=== PATIENT | male | born 1950 | race African-American/Black ===

== ENCOUNTER 2024-01-29 23:15 | Inpatient (IN) | payer OTHER, SELFPAY ==
[2024-01-29] MEDS ORDERED: ONDANSETRON 4 MG/2 ML VIAL ONE (23:38)
[2024-01-29] MEDS ORDERED: VANCOMYCIN 1 GM/VIAL ONE (23:38)
[2024-01-29] MEDS ORDERED: ACETAMINOPHEN 500 MG TAB ONE (23:38)
[2024-01-29] MEDS ORDERED: IBUPROFEN 400 MG TAB ONE (23:38)
[2024-01-29] MEDS ORDERED: CEFAZOLIN SODIUM 1 GM/VIAL ONE (23:38)
[2024-01-29] MEDS ORDERED: NA CHLORIDE 0.9% 2,000 ML ONE (23:39)
[2024-01-29] MEDS ORDERED: NA CHLORIDE 0.9% 100 ML ONE (23:39)
[2024-01-29] MEDS ORDERED: NA CHLORIDE 0.9% 500 ML ONE (23:39)
[2024-01-29 23:51] LABS: PT Prothrombin Time 16.2 SECONDS (9.4-12.5); PTT, Activated Partial Thromb 31.2 SECONDS (24.3-36.9); Protime INR 1.46
[2024-01-29 23:54] LABS: Specific Gravity 1.015 (1.005-1.030); Sqamous Epithelial <5 /HPF (None Seen); Urine Bacteria <20 /HPF (<20); Urine Bilirubin NEGATIVE (Negative); Urine Blood 1+ (Negative); Urine Clarity Extremely Turbid (Clear); Urine Color Light-Orange (Yellow); Urine Culture Reflex Order NOT NEEDED; Urine Glucose TRACE (Negative); Urine Ketones NEGATIVE (Negative); Urine Microscopic Reflex YN ORDER UMIC; Urine Mucus 1+ /HPF (None Seen); Urine Nitrite NEGATIVE (Negative); Urine Protein 2+ (Negative); Urine RBC <5 /HPF (None Seen); Urine Urobilinogen Normal (Normal); Urine pH 5.5 (5.0-7.0)
[2024-01-29 23:54] LABS: Absolute Lymphocytes (CBC) 0.6 K/uL (0.7-4.9); Absolute Monocytes 0.9 K/uL (0.1-1.3); Absolute Neutrophil 18.3 K/uL (1.8-8.0); Basophils % 0.2 % (0-1.3); Eosinophils % 0.1 % (0-4.4); Hematocrit 38.9 % (39.6-49.0); Hemoglobin 12.7 g/dL (13.6-17.9); Lymphocytes % 3.1 % (15.3-44.8); MCH 27.8 pg (27.0-35.0); MCHC 32.6 g/dL (32.0-36.0); MCV 85.2 fL (80-100); MPV 8.6 fL (7.6-11.3); Monocytes % 4.4 % (3.3-12.3); Neutrophils % 92.2 % (41.7-73.7); Nucleated Red Blood Cells % 0.1 % (0-0); Platelets 241 thou/uL (152-406); RBC Red Blood Cell Count 4.56 M/uL (4.33-5.43); Red Cell Distribution Width 14.9 % (12.1-15.2)
[2024-01-30 00:01] LABS: Arterial Blood Carboxyhemoglob 1.2 % (0-1.5); Blood Gas Oxyhemoglobin 90.9 % (94-97); Blood Gas THB 12.7 g/dl (12-18); Blood O2 Saturation 94.2 % (92-98.5)
[2024-01-30 00:02] LABS: Albumin 2.7 g/dL (3.4-5.0); Albumin/Globulin Ratio 0.5 (1.1-1.8); Anion Gap 14.3 mEq/L (5.0-15.0); Bilirubin Total 0.9 mg/dL (0.2-1.0); Globulin 5.5 g/dL (2.3-3.5); Potassium 3.3 mEq/L (3.5-5.1); Protein, Total 8.2 g/dL (6.4-8.2)
[2024-01-30 00:04] LABS: Troponin High Sensitivity 1189.6 pg/mL (<58.9)
[2024-01-30 00:16] LABS: Blood Morphology Comment NOT SEEN (NOT SEEN); Platelet Estimate ADEQ; White Blood Cell Scan OK (OK)
[2024-01-30 02:14] LABS: SARS-CoV-2 Antigen CONTROL BLUE LINE VIS/BG OK; SARS-CoV-2 Antigen Rapid Res Negative (Negative)
--- NOTE | 2024-01-30 03:02 | ER ---
Nurse's Notes [facility] [place] Name: Cruz Slater Age: 73 yrs Sex: Male : 1950 Arrival Date: 01/29/2024 Time: 23:15 Bed 18 Private MD: Diagnosis: Severe sepsis without septic shock;Acute pyelonephritis, acute troponin elevation, severe sepsis, acute febrile illness Presentation: 01/28 23:24 Chief complaint: Family states patient has had slurred speech and urinating on himself cm10 onset "this evening." Family states that patient has recently been in and out of the hospital. Coronavirus screen: Client denies travel out of the [place] in the last 14 days. Ebola Screen: Patient denies travel to an Ebola-affected area in the 21 days before illness onset. No symptoms or risks identified at this time. Initial Sepsis Screen: Does the patient meet any 2 criteria? Temp <36.0*C (96.8*F)) or > 38.3*C (100.9*F). HR > 90 bpm. Does the patient have a suspected source of infection? No. Patient's initial sepsis screen is negative. Risk Assessment: Do you want to hurt yourself or someone else? Patient reports no desire to harm self or others. Onset of symptoms is unknown. 23:24 Method Of Arrival: Wheelchair cm10 23:24 Acuity: KWAME 2 cm10 Historical: - Allergies: 23:26 No Known Allergies; cm10 - PMHx: 23:26 Diabetes mellitus; cm10 23:41 Hypertensive disorder; Hypercholesterolemia; cm10 - Immunization history:: Adult Immunizations unknown. - Infectious Disease History:: Denies. - Social history:: Smoking status: unknown. - Family history:: not pertinent. Screenin:20 [facility] ED Fall Risk Assessment (Adult) History of falling in the last 3 months, ha1 including since admission Yes- single mechanical fall (1 pt) Confusion or Disorientation Yes (5 pts) Intoxicated or Sedated No (0 pts) Impaired Gait Yes (1 pt) Mobility Assist Device Used Yes (1 pt) Altered Elimination Score/Fall Risk Level 3 or more points = High Risk Oriented to surroundings, Maintained a safe environment, Educated pt \\T\\ family on fall prevention, incl call for assistance when getting out of bed, Hourly rounding (assess needs \\T\\ fall precautionary measures) done, Implemented a Fall Risk Plan of Care. 23:46 Abuse screen: Denies threats or abuse. Denies injuries from another. jp4 01/29 04:22 Nutritional screening: No deficits noted. Tuberculosis screening: No symptoms or risk ha1 factors identified. Assessment: 01/28 23:20 General: Appears uncomfortable, ill, unkempt, Behavior is cooperative. Pain: Denies ha1 pain. Neuro: Level of Consciousness is awake, Oriented to person, place. Neuro: Reports dizziness, weakness GENERALIZED. Cardiovascular: Capillary refill < 3 seconds Patient's skin is warm and dry. Respiratory: Airway is patent Respiratory effort is even, unlabored, Respiratory pattern is regular, symmetrical. GI: Abdomen is round non-distended. : No signs and/or symptoms were reported regarding the genitourinary system. Derm: Skin is fragile, Skin is dry, Skin is normal. Musculoskeletal: Circulation, motion, and sensation intact. 01/29 00:15 Reassessment: Patient and/or family updated on plan of care and expected duration. Pain ha1 level reassessed. Patient is alert, oriented x 3, equal unlabored respirations, skin warm/dry/pink. 01:15 Reassessment: Patient and/or family updated on plan of care and expected duration. Pain ha1 level reassessed. Patient is alert, oriented x 3, equal unlabored respirations, skin warm/dry/pink. Patient denies pain at this time. Patient states feeling better. Patient states symptoms have improved. 02:00 Reassessment: Patient and/or family updated on plan of care and expected duration. Pain ha1 level reassessed. Patient is alert, oriented x 3, equal unlabored respirations, skin warm/dry/pink. 03:00 Reassessment: Patient and/or family updated on plan of care and expected duration. Pain ha1 level reassessed. Patient is alert, oriented x 3, equal unlabored respirations, skin warm/dry/pink. 03:40 Reassessment: notified Dr. Olivia of low BP . transportation to room pending due to ha1 low BP. 04:00 Reassessment: Patient and/or family updated on plan of care and expected duration. Pain ha1 level reassessed. 05:00 Reassessment: Patient and/or family updated on plan of care and expected duration. Pain ha1 level reassessed. Patient is alert, oriented x 3, equal unlabored respirations, skin warm/dry/pink. Patient states feeling better. Patient states symptoms have improved. Vital Signs: 01/28 23:24 BP 120 / 71; Pulse 133; Resp 22; Temp 103.1(O); Pulse Ox 96% on R/A; Weight 95.71 kg cm10 (M); 01/29 00:00 BP 103 / 60; Pulse 120; Resp 21 S; Pulse Ox 100% on R/A; ha1 01:00 BP 105 / 64; Pulse 121; Resp 20 S; Temp 99.2(O); Pulse Ox 98% on R/A; ha1 02:00 BP 105 / 58; Pulse 102; Resp 17 S; Pulse Ox 98% on R/A; ha1 02:30 BP 91 / 61; Pulse 98; Resp 17 S; Pulse Ox 99% on R/A; ha1 03:00 BP 95 / 60; Pulse 97; Resp 17 S; Pulse Ox 100% on R/A; ha1 03:30 BP 101 / 88; Pulse 94; Resp 18 S; Pulse Ox 98% on R/A; ha1 04:30 BP 92 / 57; Pulse 94; Resp 17 S; Pulse Ox 97% on R/A; ha1 05:00 BP 99 / 65; Pulse 89; Resp 17 S; Pulse Ox 95% on R/A; ha1 05:22 BP 100 / 65; Pulse 92; Resp 17 S; Pulse Ox 96% on R/A; ha1 Jamie Coma Score: 02:53 Eye Response: spontaneous(4). Motor Response: obeys commands(6). Verbal Response: sp4 oriented(5). Total: 15. NIH Stroke Scale Scores: 02:53 NIHSS Score: 1 sp4 ED Course: 01/28 23:20 Patient arrived in ED. sb4 23:20 Kwadwo Olivia MD is Attending Physician. sp4 23:20 Patient has correct armband on for positive identification. Placed in gown. Bed in low ha1 position. Call light in reach. Side rails up X2. Adult w/ patient. 23:26 Triage completed. cm10 23:26 Arm band placed on Patient placed in an exam room, on traffic monitor specialist, on pulse cm10 oximetry. 23:26 Initial lab(s) drawn, by me, sent to lab. Inserted saline lock: 18 gauge in left cm10 forearm, using aseptic technique. Blood collected. Flushed with 10 mL NS. Inserted saline lock: 20 gauge in right antecubital area, using aseptic technique. Blood collected. Flushed with 10 mL NS. 23:44 Urine collected: straight cath specimen, yury colored, Amount Returned: 200mL. jp4 23:47 EKG done, by ED staff, reviewed by Kwadwo Olivia MD. oe 23:53 Chest Single View XRAY In Process Unspecified. EDMS 01/29 00:12 Amelia Florian, RN is Primary Nurse. ha1 00:41 CT Head Brain wo Cont In Process Unspecified. EDMS 00:41 CT Chest, Abdomen, Pelvis - W/Contrast In Process Unspecified. EDMS 03:01 Jose John is Hospitalizing Provider. sp4 03:13 EKG done, by ED staff, reviewed by Kwadwo Olivia MD. oe 04:00 Provided Education on: need for admit . ha1 05:35 No provider procedures requiring assistance completed. Patient admitted, IV remains in ha1 place. Administered Medications: 01/28 23:41 Drug: NS 0.9% IV 1000 ml IV at 1 bolus Per protocol; 1000 mL bolus Route: IV; Rate: 1 ha1 bolus; Site: left forearm; 01/29 01:43 Follow up: Response: No adverse reaction; IV Status: Completed infusion; IV Intake: ha1 1000ml 01/28 23:42 Drug: NS 0.9% IV 1000 ml IV at 1 bolus Per protocol; 1000 mL bolus Route: IV; Rate: 1 ha1 bolus; Site: left forearm; 01/29 01:50 Follow up: Response: No adverse reaction; IV Status: Completed infusion; IV Intake: ha1 1000ml 01/28 23:42 Drug: NS 0.9% IV 1000 ml IV at 125 ml/hr continuous Route: IV; Rate: 125 ml/hr; Site: ha1 left forearm; 01/29 05:41 Follow up: Response: No adverse reaction; IV Status: Infusion continued; IV Intake: ha1 700ml 01/28 23:45 Drug: Acetaminophen PO 1000 mg PO once Route: PO; ha1 01/29 01:00 Follow up: Response: No adverse reaction; Temperature is decreased 01/28 23:45 Drug: Ibuprofen PO 800 mg PO once Route: PO; 01/29 01:00 Follow up: Response: No adverse reaction; Temperature is decreased 01/28 23:50 Drug: Ondansetron IVP 4 mg IVP once; over 2 minutes Route: IVP; Site: left forearm; ha01/29 00:10 Follow up: Response: No adverse reaction ha1 00:00 Drug: Cefepime IVPB 1 grams IVPB at 200 ml/hr once over 30 mins; (mix in NS 100 mL) ha1 Route: IVPB; Rate: 200 ml/hr; Infused Over: 30 mins; Site: left forearm; 00:30 Follow up: Response: No adverse reaction; IV Status: Completed infusion; IV Intake: ha1 100ml 01:00 Drug: vancoMYCIN IVPB 2 grams IVPB at calculated rate once Route: IVPB; Rate: ha1 calculated rate; Site: left forearm; 03:00 Follow up: Response: No adverse reaction; IV Status: Completed infusion; IV Intake: ha1 500ml 04:20 Drug: Enoxaparin Sub-Q 100 mg Sub-Q once Route: Sub-Q; Site: abdomen; ha1 04:50 Follow up: Response: No adverse reaction ha1 04:20 Drug: Aspirin PO Chewable Tablet 324 mg PO once; 81 mg tablets x 4 Route: PO; ha1 04:50 Follow up: Response: No adverse reaction ha1 04:45 Drug: Albumin IVPB 25 grams 100 ml IVPB once; (Note: Albumin 25% concentration) Volume: ha1 100 ml; Route: IVPB; Site: left forearm; 05:34 Follow up: Response: No adverse reaction; IV Status: Completed infusion; IV Intake: ha1 100ml 04:45 Drug: NS 0.9% IV 500 ml IV at bolus once Route: IV; Rate: bolus; Site: right ha1 antecubital; 05:34 Follow up: Response: No adverse reaction; IV Status: Infusion continued upon admission; ha1 IV Intake: 300ml Medication: 01:39 VIS not applicable for this client. ha1 Intake: 00:30 IV: 100ml; Total: 100ml. ha1 01:43 IV: 1000ml; Total: 1100ml. ha1 01:50 IV: 1000ml; Total: 2100ml. ha1 03:00 IV: 500ml; Total: 2600ml. ha1 05:34 IV: 300ml; Total: 2900ml. ha1 05:34 IV: 100ml; Total: 3000ml. ha1 05:41 IV: 700ml; Total: 3700ml. ha1 Outcome: 03:02 Decision to Hospitalize by Provider. sp4 04:21 Condition: stable ha1 04:21 Instructed on the need for admit, Demonstrated understanding of instructions, 05:35 Admitted to Med/surg accompanied by tech, via stretcher, room 201, with chart, ha1 05:42 Patient left the ED. ha1 NIH Stroke Scale - NIH Stroke Score Date: 01/30/2024 Time: 02:53 Total Score = 1 10. Dysarthria (speech clarity - read or repeat words) - 0(Normal) 11. Extinction and Inattention (visual/tactile/auditory/spatial/personal) - 1(Present) 1a. Level of Consciousness (LOC) - 0(Alert) 1b. Level of Consciousness (LOC) (Month \\T\\ Age) - 0(Both) 1c. LOC Commands (Open \\T\\ Closes Eyes/Coding Validator) - 0(Both) 2. Best Gaze (Lateral Gaze Paresis) - 0(Normal) 3. Visual Field Loss - 0(No visual loss) 4. Facial Palsy - 0(Normal) 5a. Left Arm: Motor (10-second hold) - 0(No drift) 5b. Right Arm: Motor (10-second hold) - 0(No drift) 6a. Left Leg: Motor (5-second hold - always test supine) - 0(No drift) 6b. Right Leg: Motor (5-second hold - always test supine) - 0(No drift) 7. Limb Ataxia (finger/nose \\T\\ heel/sierra - test with eyes open) - 0(Absent) 8. Sensory Loss (pinprick arms/legs/face) - 0(Normal) 9. Best Language: Aphasia (description/naming/reading) - 0(No aphasia) Initials: sp4 Signatures: Dispatcher [employer] EDMS Chuck Gutierrez Heidy, RN RN ha1 Brown, Merle, PA-C Kwadwo Charles MD MD sp4 Marianna Ordoñez RN RN cm10 Ihsan Shin RN RN jp4 Corrections: (The following items were deleted from the chart) 05:35 05:35 Response: No adverse reaction ha1 ha1 05:37 05:10 Reassessment: Patient and/or family updated on plan of care and expected ha1 duration. Pain level reassessed. Patient is alert, oriented x 3, equal unlabored respirations, skin warm/dry/pink. Patient states feeling better. Patient states symptoms have improved. ha1
--- NOTE | 2024-01-30 03:03 | EDPHYS ---
Physician Documentation [facility] Name: Cruz Slater Age: 73 yrs Sex: Male : 1950 Arrival Date: 01/29/2024 Time: 23:15 Bed 18 Private MD: ED Physician Kwadwo Olivia HPI: 01/29 02:39 This 73 yrs old Black Male presents to ER via Wheelchair with complaints of General sp4 Weakness. 02:53 73-year-old male with history of diabetes, hypertension, insulin-dependent diabetes, sp4 hyperlipidemia presents with acute onset of high fever generalized weakness and urinary incontinence. Patient reports that he was seen at [facility] on 01/24/2024 and again on Sunday01/26/2024, for complaints of generalized weakness and low potassium. Patient was discharged from [facility] without any specific diagnosis. But was advised to supplement potassium. At home this evening patient developed sudden onset of generalized weakness slurring of the speech high fever and urinary incontinence. On arrival patient has high fever 103 and has generalized weakness but no signs of lateralizing neurologic deficit. Patient's medications at home include metformin twice a day, amlodipine 5 mg p.o. daily, Januvia 100 mg daily, Levemir 10 units daily, ibuprofen as needed and Crestor daily. . Historical: - Allergies: 01/28 23:26 No Known Allergies; cm10 - PMHx: 23:26 Diabetes mellitus; cm10 23:41 Hypertensive disorder; Hypercholesterolemia; cm10 - Immunization history:: Adult Immunizations unknown. - Infectious Disease History:: Denies. - Social history:: Smoking status: unknown. - Family history:: not pertinent. ROS: 01/29 02:53 Constitutional: Positive for fever, positive for generalized weakness, positive for sp4 urinary incontinence. All other systems are negative, Exam: 02:53 Constitutional: Ill-appearing, generalized weakness febrile, ill-appearing and toxic sp4 appearing. Nonhypertensive. Tachycardic Head/Face: Normocephalic, atraumatic. Eyes: Pupils equal round and reactive to light, extra-ocular motions intact. Lids and lashes normal. Conjunctiva and sclera are not injected. Cornea within normal limits. Periorbital areas with no swelling, redness, or edema. ENT: Nares patent. No nasal discharge, no septal abnormalities noted. Tympanic membranes are normal and external auditory canals are clear. Oropharynx with no redness, swelling, or masses, exudates, or evidence of obstruction, uvula midline. Mucous membranes moist. Neck: Trachea midline, no thyromegaly or masses palpated, and no cervical lymphadenopathy. Supple, full range of motion without nuchal rigidity, or vertebral point tenderness. Chest/axilla: Normal chest wall appearance and motion. Nontender with no deformity. No lesions are appreciated. Cardiovascular: Regular tachycardia, no gallops, murmurs, or rubs. Normal PMI, no JVD. No pulse deficits. Respiratory: Lungs have equal breath sounds bilaterally, clear to auscultation and percussion. No rales, rhonchi or wheezes noted. No increased work of breathing, no retractions or nasal flaring. Abdomen/GI: Soft, with normal bowel sounds. No distension or tympany. No guarding or rebound. No evidence of tenderness throughout. Back: No spinal tenderness. No costovertebral tenderness. Skin: Warm, dry with normal turgor. Normal color with no rashes, no lesions, and no evidence of cellulitis. MS/ Extremity: Pulses equal, no cyanosis. Neurovascular intact. Full, normal range of motion. Neuro: Awake and alert, GCS 15, oriented to person, Cranial nerves II-XII grossly intact. Motor strength 5/5 in all extremities. Sensory grossly intact. Generalized weakness , no lateralizing deficits 02:53 ECG was reviewed by the Attending Physician. EKG at 2 when she 329 atrial fibrillation sp4 rate 125, no ST elevation or depression. 04:54 ECG was reviewed by the Attending Physician. Repeat EKG at 0308 sinus rhythm at rate of sp4 96 with premature atrial contractions. Vital Signs: 01/28 23:24 BP 120 / 71; Pulse 133; Resp 22; Temp 103.1(O); Pulse Ox 96% on R/A; Weight 95.71 kg cm10 (M); 01/29 00:00 BP 103 / 60; Pulse 120; Resp 21 S; Pulse Ox 100% on R/A; ha1 01:00 BP 105 / 64; Pulse 121; Resp 20 S; Temp 99.2(O); Pulse Ox 98% on R/A; ha1 02:00 BP 105 / 58; Pulse 102; Resp 17 S; Pulse Ox 98% on R/A; ha1 02:30 BP 91 / 61; Pulse 98; Resp 17 S; Pulse Ox 99% on R/A; ha1 03:00 BP 95 / 60; Pulse 97; Resp 17 S; Pulse Ox 100% on R/A; ha1 03:30 BP 101 / 88; Pulse 94; Resp 18 S; Pulse Ox 98% on R/A; ha1 04:30 BP 92 / 57; Pulse 94; Resp 17 S; Pulse Ox 97% on R/A; ha1 05:00 BP 99 / 65; Pulse 89; Resp 17 S; Pulse Ox 95% on R/A; ha1 05:22 BP 100 / 65; Pulse 92; Resp 17 S; Pulse Ox 96% on R/A; ha1 NIH Stroke Scale Scores: 02:53 NIHSS Score: 1 sp4 Jamie Coma Score: 02:53 Eye Response: spontaneous(4). Motor Response: obeys commands(6). Verbal Response: sp4 oriented(5). Total: 15. MDM: 01/28 23:36 Patient medically screened. sp4 01/29 02:39 ED course: PROCEDURE: CT Head Without Intravenous Contrast CLINICAL INDICATION: The sp4 patient is 73 years old and is Male; Confused. TECHNIQUE: Axial computed tomography images of the head/brain without intravenous contrast. Sagittal and coronal reformatted images were created and reviewed. This CT exam was performed using one or more of the following dose reduction techniques: automated exposure control, adjustment of the mA and/or kV according to patient size, and/or use of iterative reconstruction technique. COMPARISON: None. FINDINGS: BRAIN: No extra-axial fluid collection. No intracranial hemorrhage. No transtentorial herniation. No focal mejía-white matter differentiation abnormality. MIDLINE SHIFT: None. VENTRICLES: Unremarkable No ventriculomegaly. BONES/JOINTS: No fracture of the calvarium or visualized facial bones. SOFT TISSUES: Unremarkable SINUSES: No masses, bony erosion or evidence of acute sinusitis. MASTOID AIR CELLS: Unremarkable as visualized. No mastoid effusion. IMPRESSION: No acute intracranial abnormality. . 02:45 ED course: IMPRESSION: 1. Decreased cortical enhancement and adjacent fat stranding sp4 involving the superior pole of the right kidney, suspicious for pyelonephritis. 2. Bladder wall thickening which may be due to the decompressed state of the bladder or due to cystitis. Correlation with urinalysis and urine culture recommended. 3. Fluid demonstrated throughout the colonic lumen, suggesting diarrheal illness. No focal bowel wall or mucosal thickening or adjacent fat stranding to suggest inflammatory enteritis or colitis. 4. Prominent appearing aortocaval lymph nodes which appear to retain their fatty coleman, favoring reactive etiology. 5. No acute cardiopulmonary abnormality. 6. Prostatomegaly. Correlation with PSA levels recommended.. 02:59 Differential Diagnosis altered mental status, sepsis, flu. Data reviewed: vital signs, sp4 nurses notes, old medical records, lab test result(s), EKG, radiologic studies, CT scan, plain films. ED course: EXAM DESCRIPTION: Chest Single View CLINICAL HISTORY: 73 years Male CHEST PAIN TECHNIQUE: One view of the chest. COMPARISON: No prior exams provided for comparison. FINDINGS: Prominence of the cardiomediastinal silhouette and central pulmonary vasculature with mild pulmonary edema suspected. No definite pleural effusion or pneumothorax. No acute osseous lesion. IMPRESSION: Mild CHF. . ED course: CT report - CT Chest, Abdomen and Pelvis With Intravenous Contrast CLINICAL INDICATION: The patient is 73 years old and is Male; Chest Pain. TECHNIQUE: Axial computed tomography images of the chest, abdomen and pelvis with intravenous contrast. Sagittal and coronal reformatted images were created and reviewed. This CT exam was performed using one or more of the following dose reduction techniques: automated exposure control, adjustment of the mA and/or kV according to patient size, and/or use of iterative reconstruction technique. COMPARISON: XR Chest 01/29/2024. FINDINGS: CHEST: LUNGS: Expiratory lung volumes bilaterally. No focal consolidation or suspicious pulmonary mass or nodule. PLEURAL SPACE: Unremarkable No significant effusion. No pneumothorax. HEART: No cardiomegaly or significant pericardial effusion. No significant coronary artery calcifications. ABDOMEN: LIVER: Unremarkable No mass. GALLBLADDER AND BILE DUCTS: Unremarkable No calcified stones. No ductal dilation. PANCREAS: Unremarkable No ductal dilation. No mass. SPLEEN: Unremarkable No splenomegaly. ADRENALS: Unremarkable No mass. KIDNEYS AND URETERS: Decreased cortical enhancement and adjacent fat stranding involving the superior pole of the right kidney, suspicious for pyelonephritis. No hydronephrosis. No solid mass. STOMACH AND BOWEL: Fluid demonstrated throughout the colonic lumen, suggesting diarrheal illness. No focal bowel wall or mucosal thickening or adjacent fat stranding to suggest inflammatory enteritis or colitis. No obstruction. PELVIS: APPENDIX: No findings to suggest acute appendicitis. BLADDER: Bladder wall thickening which may be due to the decompressed state of the bladder or due to cystitis. REPRODUCTIVE: Prostatomegaly. CHEST, ABDOMEN and PELVIS: INTRAPERITONEAL SPACE: Unremarkable No significant fluid collection. No free air. BONES/JOINTS: Multilevel spondylosis. Calcific tendinosis of the right lesser trochanter iliopsoas tendinous insertion. No acute fracture. No dislocation. SOFT TISSUES: Unremarkable VASCULATURE: See above. LYMPH NODES: Prominent appearing aortocaval lymph nodes which appear to retain their fatty coleman, favoring reactive etiology. . 03:02 ED course: Sepsis reevaluation completed, fever has subsided, patient is tolerating sp4 p.o. fluids.. 01/28 23:20 Order name: Blood Culture Adult (2) [facility] 01/28 23:20 Order name: CBC with Diff; Complete Time: 00:21 [facility] 01/28 23:20 Order name: CMP; Complete Time: 00:21 [facility] 01/28 23:20 Order name: Lactate w/ 2H reflex if indic.; Complete Time: 00:21 [facility] 01/28 23:20 Order name: Protime (+inr); Complete Time: 00:21 [facility] 01/28 23:20 Order name: Ptt, Activated; Complete Time: 00:21 [facility] 01/28 23:20 Order name: Urinalysis w/ reflexes; Complete Time: 00:21 [facility] 01/28 23:20 Order name: ABG [facility] 01/28 23:20 Order name: Troponin High Sensitivity; Complete Time: 00:21 [facility] 01/28 23:20 Order name: BNP; Complete Time: 00:21 [facility] 01/28 23:23 Order name: SARS RAPID; Complete Time: 02:45 [facility] 01/28 23:23 Order name: Influenza Screen (a \T\ B); Complete Time: 02:45 [facility] 01/29 00:16 Order name: CBC Smear Scan; Complete Time: 00:21 EDND 01/29 03:03 Order name: Troponin High Sensitivity [facility] 01/28 23:20 Order name: Chest Single View XRAY [facility] 01/28 23:24 Order name: CT Head Brain wo Cont [facility] 01/28 23:24 Order name: CT Chest, Abdomen, Pelvis - W/Contrast [facility] 01/28 23:20 Order name: EKG; Complete Time: 23:21 sp4 01/28 23:20 Order name: Accucheck; Complete Time: 00:17 sp4 01/28 23:20 Order name: Cardiac monitoring; Complete Time: 23:42 sp4 01/28 23:20 Order name: EKG - Nurse/Tech; Complete Time: 23:42 sp4 01/28 23:20 Order name: IV Saline Lock - Large Bore; Complete Time: 23:42 sp4 01/28 23:20 Order name: Labs collected and sent; Complete Time: 23:42 sp4 01/28 23:20 Order name: O2 Per Protocol; Complete Time: 00:17 sp4 01/28 23:20 Order name: O2 Sat Monitoring; Complete Time: 23:42 sp4 01/28 23:20 Order name: Vital Signs; Complete Time: 23:42 sp4 01/29 03:03 Order name: EKG - Nurse/Tech; Complete Time: 03:13 sp4 EC:53 Rate is 125 beats/min. Rhythm is irregularly irregular, A fib. QRS [place] is Normal. QRS sp4 interval is normal. QT interval is normal. No Q waves. T waves are Normal. No ST changes noted. Clinical impression: Atrial Fibrillation. Interpreted by me. Reviewed by me. Administered Medications: 01/28 23:41 Drug: NS 0.9% IV 1000 ml IV at 1 bolus Per protocol; 1000 mL bolus Route: IV; Rate: 1 ha1 bolus; Site: left forearm; 01/29 01:43 Follow up: Response: No adverse reaction; IV Status: Completed infusion; IV Intake: ha1 1000ml 01/28 23:42 Drug: NS 0.9% IV 1000 ml IV at 1 bolus Per protocol; 1000 mL bolus Route: IV; Rate: 1 ha1 bolus; Site: left forearm; 01/29 01:50 Follow up: Response: No adverse reaction; IV Status: Completed infusion; IV Intake: ha1 1000ml 01/28 23:42 Drug: NS 0.9% IV 1000 ml IV at 125 ml/hr continuous Route: IV; Rate: 125 ml/hr; Site: ha1 left forearm; 01/29 05:41 Follow up: Response: No adverse reaction; IV Status: Infusion continued; IV Intake: ha1 700ml 01/28 23:45 Drug: Acetaminophen PO 1000 mg PO once Route: PO; 01/29 01:00 Follow up: Response: No adverse reaction; Temperature is decreased 01/28 23:45 Drug: Ibuprofen PO 800 mg PO once Route: PO; 01/29 01:00 Follow up: Response: No adverse reaction; Temperature is decreased 01/28 23:50 Drug: Ondansetron IVP 4 mg IVP once; over 2 minutes Route: IVP; Site: left forearm; 01/29 00:10 Follow up: Response: No adverse reaction ha 00:00 Drug: Cefepime IVPB 1 grams IVPB at 200 ml/hr once over 30 mins; (mix in NS 100 mL) ha1 Route: IVPB; Rate: 200 ml/hr; Infused Over: 30 mins; Site: left forearm; 00:30 Follow up: Response: No adverse reaction; IV Status: Completed infusion; IV Intake: ha1 100ml 01:00 Drug: vancoMYCIN IVPB 2 grams IVPB at calculated rate once Route: IVPB; Rate: ha1 calculated rate; Site: left forearm; 03:00 Follow up: Response: No adverse reaction; IV Status: Completed infusion; IV Intake: ha1 500ml 04:20 Drug: Enoxaparin Sub-Q 100 mg Sub-Q once Route: Sub-Q; Site: abdomen; ha1 04:50 Follow up: Response: No adverse reaction ha1 04:20 Drug: Aspirin PO Chewable Tablet 324 mg PO once; 81 mg tablets x 4 Route: PO; ha1 04:50 Follow up: Response: No adverse reaction ha1 04:45 Drug: Albumin IVPB 25 grams 100 ml IVPB once; (Note: Albumin 25% concentration) Volume: ha1 100 ml; Route: IVPB; Site: left forearm; 05:34 Follow up: Response: No adverse reaction; IV Status: Completed infusion; IV Intake: ha1 100ml 04:45 Drug: NS 0.9% IV 500 ml IV at bolus once Route: IV; Rate: bolus; Site: right ha1 antecubital; 05:34 Follow up: Response: No adverse reaction; IV Status: Infusion continued upon admission; ha1 IV Intake: 300ml Disposition Summary: 01/30/24 03:02 Hospitalization Ordered Notes: Hospitalization Status: Inpatient Admission sp4 Provider: Jose John sp4 Location: Telemetry/MedSurg (Inpatient) sp4 Condition: Serious sp4 Problem: new sp4 Symptoms: have improved sp4 Bed/Room Type: Standard sp4 Room Assignment: 201(01/30/24 03:41) af3 Diagnosis - Severe sepsis without septic shock sp4 - Acute pyelonephritis, acute troponin elevation, severe sepsis, acute febrile illnesssp4 Forms: - Medication Reconciliation Form sp4 - SBAR form sp4 - Leadership Thank You Letter sp4 Critical care time excluding procedures: 03:02 Critical care time: Bedside Care: 36 minutes, Consultation: 12 minutes, Family sp4 Intervention: 12 minutes. Total time: 60 minutes NIH Stroke Scale - NIH Stroke Score Date: 01/30/2024 Time: : Total Score = 1 10. Dysarthria (speech clarity - read or repeat words) - 0(Normal) 11. Extinction and Inattention (visual/tactile/auditory/spatial/personal) - 1(Present) 1a. Level of Consciousness (LOC) - 0(Alert) 1b. Level of Consciousness (LOC) (Month \T\ Age) - 0(Both) 1c. LOC Commands (Open \T\ Closes Eyes/Coroner) - 0(Both) 2. Best Gaze (Lateral Gaze Paresis) - 0(Normal) 3. Visual Field Loss - 0(No visual loss) 4. Facial Palsy - 0(Normal) 5a. Left Arm: Motor (10-second hold) - 0(No drift) 5b. Right Arm: Motor (10-second hold) - 0(No drift) 6a. Left Leg: Motor (5-second hold - always test supine) - 0(No drift) 6b. Right Leg: Motor (5-second hold - always test supine) - 0(No drift) 7. Limb Ataxia (finger/nose \T\ heel/sierra - test with eyes open) - 0(Absent) 8. Sensory Loss (pinprick arms/legs/face) - 0(Normal) 9. Best Language: Aphasia (description/naming/reading) - 0(No aphasia) Initials: sp4 Signatures: Dispatcher [employer] EDMS Amelia Florian RN RN ha1 Kwadwo Olivia MD MD sp4 Marianna Ordoñez RN RN cm10 Victorina Aquino af3 Corrections: (The following items were deleted from the chart) 01/28 23:21 23:21 BLOOD CULTURE*+BA.LAB.BRZ ordered. EDMS EDMS 23:21 23:21 CBC+H.LAB.BRZ ordered. EDMS EDMS 23:21 23:21 COMPREHENSIVE METABOLIC PANEL+C.LAB.BRZ ordered. EDMS EDMS 23:21 23:21 LACTATE+C.LAB.BRZ ordered. EDMS EDMS 23:21 23:21 PROTIME (+INR)+COAG.LAB.BRZ ordered. EDMS EDMS 23:21 23:21 PTT, ACTIVATED+COAG.LAB.BRZ ordered. EDMS EDMS 23:21 23:21 Urinalysis+U.LAB.BRZ ordered. EDMS EDMS 23:21 23:21 Troponin High Sensitivity+C.LAB.BRZ ordered. EDMS EDMS 23:21 23:21 PROBNP+C.LAB.BRZ ordered. EDMS EDMS 01/29 01:37 01/28 23:24 Mcmahon ordered. sp4 ha1 01/29 03:04 03:04 Troponin High Sensitivity+C.LAB.BRZ ordered. EDMS EDMS 03:41 03:02 sp4 af3
--- NOTE | 2024-01-30 03:25 | P.HP ---
Certification for Inpatient Patient admitted to: Inpatient With expected LOS: <2 Midnights Practitioner: I am a practitioner with admitting privileges, knowledge of patient current condition, hospital course, and medical plan of care. Services: Services provided to patient in accordance with Admission requirements found in Title 42 Section 412.3 of the Code of Federal Regulations Patient History Date of Service: 01/30/24 Reason for admission: Acute pyelonephritis History of Present Illness: 73-year-old -Lao male with a past medical history of hypertension, hyperlipidemia, insulin-dependent diabetes, urinary tract infection presents to the emergency room with fever. Spouse is at bedside is primary historian reports patient was recently treated for UTI, and was discharged. 01/24/2024 and again on Sunday01/26/2024, She reports urinary incontinence, on arrival to the ER fever was 103. Luis Angel reports he is independent at baseline, has had moderate generalized weakness difficulty with ambulating. He reports shortness of breath with exertion, no reported chest pain, no reported edema, no reported history of [place], no history of PCI no higher no prior heart cath. ER evaluation 0 BP 103 / 60; Pulse 120; Resp 21 S; Pulse Ox 100% on R/A,, GCS is 15, CT of the abdomen e: IMPRESSION: 1. Decreased cortical enhancement and adjacent fat stranding involving the superior pole of the right kidney, suspicious for pyelonephritis. 2. Bladder wall thickening which may be due to the decompressed state of the bladder or due to cystitis. Correlation with urinalysis and urine culture recommended. 3. Fluid demonstrated throughout the colonic lumen, suggesting diarrheal illness. No focal bowel wall or mucosal thickening or adjacent fat stranding to suggest inflammatory enteritis or colitis. 4. Prominent appearing aortocaval lymph nodes which appear to retain their fatty coleman, favoring reactive etiology. 5. No acute cardiopulmonary abnormality. 6. Prostatomegaly. Correlation with PSA levels recommended..e superior pole of the right kidney, suspicious for pyelonephritis. No hydronephrosis. No solid mass. : Multilevel spondylosis. EKG Rate is 125 beats/min. Rhythm is irregularly irregular, A fib. QRS [place] is Normal. QRS interval is normal. QT interval is normal. No Q waves. T waves are Normal. No ST changes noted. Clinical impression: Atrial Fibrillation. Plan to admit for atrial fibrillation uncontrolled, NSTEMI, Severe sepsis without septic shock, Acute pyelonephritis, a, severe sepsis, acute febrile illnesss. Laboratory troponin 1189, BNP 2711, mild hypokalemia 3.3, mild hyponatremia 1.1, leukocytosis WBCs 19.90, left shift 92.2,, UA 1+ blood Allergies No Known Allergies Allergy (Unverified 01/30/24 03:41) - Past Medical/Surgical History -: Hypertension -: insulin-dependent diabetes -: Hyperlipidemia -: Appendectomy -: Hernia repair Psychosocial/ Personal History: Lives with spouse, independent prior use of tobacco or EtOH - Social History Smoking Status: Never smoker Alcohol use: No CD- Drugs: No Caffeine use: Yes Place of Residence: Home Review of Systems Per HPI Physical Examination - Physical Exam General: Alert, In no apparent distress, Oriented x3 HEENT: Atraumatic, Normocephalic Neck: Supple, 2+ carotid pulse no bruit Respiratory: Normal air movement, Crackles/rales Cardiovascular: Normal pulses, Regular rate/rhythm Capillary refill: <2 Seconds Gastrointestinal: Normal bowel sounds, Soft and benign Musculoskeletal: No clubbing, No swelling, Other (Generalized weakness) Integumentary: No breakdown, No significant lesion Neurological: Normal speech, Normal strength at 5/5 x4 extr, Abnormal gait - Studies Laboratory Data (last 24 hrs) 01/29/24 01/29/24 01/29/24 23:17 23:17 23:17 WBC 19.90 H Hgb 12.7 L Hct 38.9 L Plt Count 241 PT 16.2 H INR 1.46 APTT 31.2 Sodium 133 L Potassium 3.3 L BUN 19 H Creatinine 1.52 H Glucose 158 H Total Bilirubin 0.9 AST 99 H ALT 118 H Alkaline Phosphatase 108 Microbiology Data (last 24 hrs): 01/30/24 01:50 Nasopharnyx Influenza Type A Antigen Screen - Final 01/30/24 01:50 Nasopharnyx Influenza Type B Antigen Screen - Final Assessment and Plan - Plan Assessment plan Sepsis without shock secondary to acute pyelonephritis Failed outpatient treatment IV fluids, IV antibiotics,, EKG Rate is 125 beats/min. Rhythm is irregularly irregular, A fib. QRS [place] is Normal. QRS interval is normal. QT interval is normal. No Q waves. T waves are Normal. No ST changes noted. Clinical impression: Atrial Fibrillation. Plan to admit for atrial fibrillation uncontrolled, NSTEMI, Severe sepsis without septic shock, Acute pyelonephritis, a, severe sepsis, acute febrile illnesss. Laboratory troponin 1189, BNP 2711 Urine cultures blood cultures -Lao male with a past medical history of hypertension, hyperlipidemia, insulin-dependent diabetes, urinary tract infection presents to the emergency room with fever. Spouse is at bedside is primary historian reports patient was recently treated for UTI, and was discharged. 01/24/2024 and again on Sunday01/26/2024, She reports urinary incontinence, on arrival to the ER fever was 103. Luis Angel reports he is independent at baseline, has had moderate generalized weakness difficulty with ambulating. He reports shortness of breath with exertion, no reported chest pain, no reported edema, no reported history of [place], no history of PCI no higher no prior heart cath. ER evaluation 0 BP 103 / 60; Pulse 120; Resp 21 S; Pulse Ox 100% on R/A,, GCS is 15, CT of the abdomen e: IMPRESSION: 1. Decreased cortical enhancement and adjacent fat stranding involving the superior pole of the right kidney, suspicious for pyelonephritis. 2. Bladder wall thickening which may be due to the decompressed state of the bladder or due to cystitis. Correlation with urinalysis and urine culture recommended. 3. Fluid demonstrated throughout the colonic lumen, suggesting diarrheal illness. No focal bowel wall or mucosal thickening or adjacent fat stranding to suggest inflammatory enteritis or colitis. 4. Prominent appearing aortocaval lymph nodes which appear to retain their fatty coleman, favoring reactive etiology. 5. No acute cardiopulmonary abnormality. 6. Prostatomegaly. Correlation with PSA levels recommended..e superior pole of the right kidney, suspicious for pyelonephritis. No hydronephrosis. No solid mass. : Multilevel spondylosis. , leukocytosis WBCs 19.90, left shift 92.2,, UA 1+ blood NSTEMI A-fib RVR History of hypertension Hyperlipidemia IV Lopressor, telemetry, Lasix, aspirin, antilipid, metoprolol Echo ordered, Daily weight Weakness Multilevel spondylosis PT eval Hypokalemia Hyponatremia Trend electrolytes replace. mild hypokalemia 3.3, mild hyponatremia 133 Diabetes type 2 insulin-dependent Accu-Cheks, sliding scale insulin Full code DVT therapeutic Lovenox Diet npo until cardiology eval Disposition Home independent, pending hospital course Discharge Plan: Home - Advance Directives Does patient have a Living Will: No Does patient have a Durable POA for Healthcare: No - Code Status/Comfort Care Code Status: Full Code Critical Care: No Time Spent Managing Pts Care (In Minutes): 55
[2024-01-30] MEDS ORDERED: ASPIRIN EC 81 MG TAB PO ONE (04:05)
[2024-01-30] MEDS ORDERED: ENOXAPARIN 100 MG/ML SYR SQ ONE ×2 (04:05→07:00)
[2024-01-30] MEDS ORDERED: ALBUMIN HUMAN 25% 100 ML IV ONE (04:42)
[2024-01-30] MEDS ORDERED: NA CHLORIDE 0.9% 500 ML ONE (04:43)
[2024-01-30 05:59] VITALS: BMI 32.6
[2024-01-30] MEDS: INSULIN REGULAR (HUMAN) 100 UNIT/ML SQ SCH (07:30)
[2024-01-30 07:40] LABS: Absolute Basophils 0.1 K/uL (0-0.5); Absolute Eosinophils 0.2 K/uL (0-0.5); Absolute Lymphocytes (CBC) 0.8 K/uL (0.7-4.9); Absolute Monocytes 1.4 K/uL (0.1-1.3); Absolute Neutrophil 17.7 K/uL (1.8-8.0); Basophils % 0.4 % (0-1.3); Eosinophils % 0.8 % (0-4.4); Hematocrit 32.4 % (39.6-49.0); Hemoglobin 10.8 g/dL (13.6-17.9); MCH 28.3 pg (27.0-35.0); MCHC 33.3 g/dL (32.0-36.0); MCV 85.1 fL (80-100); MPV 8.2 fL (7.6-11.3); Neutrophils % 87.8 % (41.7-73.7); Platelets 192 thou/uL (152-406); Red Cell Distribution Width 14.7 % (12.1-15.2)
[2024-01-30 07:58] LABS: Anion Gap 10.2 mEq/L (5.0-15.0); Magnesium 2.3 mg/dL (1.6-2.4); Potassium 3.2 mEq/L (3.5-5.1)
[2024-01-30 08:00] LABS: Troponin High Sensitivity 2732.8 pg/mL (<58.9)
[2024-01-30 08:35] LABS: Blood Morphology Comment NOT SEEN (NOT SEEN); Platelet Estimate ADEQ; White Blood Cell Scan OK (OK)
[2024-01-30] MEDS: METOPROLOL TAR 25 MG TAB PO SCH (08:44)
[2024-01-30] MEDS: ASPIRIN 325 MG TAB PO SCH (08:50)
[2024-01-30] MEDS: CEFEPIME 2 GM in NA CHLORIDE 0.9% 100 ML IV SCH (08:50)
[2024-01-30] MEDS ORDERED: FUROSEMIDE 40 MG/4 ML VIAL IV SCH (09:00)
[2024-01-30] MEDS: NA CHLORIDE 0.9% 500 ML IV ONE (09:44)
[2024-01-30] MEDS: NS KCL 20MEQ 20 MEQ/1,000 ML BAG IV SCH (10:28)
--- NOTE | 2024-01-30 13:28 | RAD REPORT ---
EXAM DESCRIPTION: CT - Head Brain Wo Cont - 01/30/2024 12:[address] Head Without Intravenous Contrast CLINICAL HISTORY: The patient is 73 years old and is Male; Confused. TECHNIQUE: Axial computed tomography images of the head/brain without intravenous contrast. Sagitt al and coronal reformatted images were created and reviewed. This CT exam was performed using one o r more of the following dose reduction techniques: automated exposure control, adjustment of the mA and/or kV according to patient size, and/or use of iterative reconstruction technique. COMPARISON: None. FINDINGS: BRAIN: No extra-axial fluid collection. No intracranial hemorrhage. No transtentorial he rniation. No focal mejía-white matter differentiation abnormality. MIDLINE SHIFT: None. VENTRICLES: Unremarkable No ventriculomegaly. BONES/JOINTS: No fracture of the calvarium or visualized facial bones. SOFT TISSUES: Unremarkable SINUSES: No masses, bony erosion or evidence of acute sinusitis. MASTOID AIR CELLS: Unremarkable as visualized. No mastoid effusion. IMPRESSION: No acute intracranial abnormality. Electronically signed by: Toby Quintanilla MD 01/30/2024 02:31 AM CDT Due to temporary technical issues with the PACS/Fluency reporting system, reports are being signed by the in house radiologists without review as a courtesy to insure prompt reporting. The interpreting radiologist is fully responsible for the content of the report.
--- NOTE | 2024-01-30 13:30 | RAD REPORT ---
EXAM DESCRIPTION: CT - Chest Abdomen Pelvis W Cont - 01/30/2024 12:39 am CLINICAL HISTORY: The patient is 73 years old and is Male; Chest Pain. TECHNIQUE: Axial computed tomography images of the chest, abdomen and pelvis with intravenous contra st. Sagittal and coronal reformatted images were created and reviewed. This CT exam was performed using one or more of the following dose reduction techniques: automated exposure control, adjustme nt of the mA and/or kV according to patient size, and/or use of iterative reconstruction technique. COMPARISON: XR Chest 01/29/2024. FINDINGS: CHEST: LUNGS: Expiratory lung volumes bilaterally. No focal consolidation or suspicious pulmonary mass or nodule. PLEURAL SPACE: Unremarkable No significant effusion. No pneumothorax. HEART: No cardiomegaly or significant pericardial effusion. No significant coronary artery calcifications. ABDOMEN: LIVER: Unremarkable No mass. GALLBLADDER AND BILE DUCTS: Unremarkable No calcified stones. No ductal dilation. PANCREAS: Unremarkable No ductal dilation. No mass. SPLEEN: Unremarkable No splenomegaly. ADRENALS: Unremarkable No mass. KIDNEYS AND URETERS: Decreased cortical enhancement and adjacent fat stranding involving the superi or pole of the right kidney, suspicious for pyelonephritis. No hydronephrosis. No solid mass. STOMACH AND BOWEL: Fluid demonstrated throughout the colonic lumen, suggesting diarrheal illness. N o focal bowel wall or mucosal thickening or adjacent fat stranding to suggest inflammatory enteritis or colitis. No obstruction. PELVIS: APPENDIX: No findings to suggest acute appendicitis. BLADDER: Bladder wall thickening which may be due to the decompressed state of the bladder or due t o cystitis. REPRODUCTIVE: Prostatomegaly. CHEST, ABDOMEN and PELVIS: INTRAPERITONEAL SPACE: Unremarkable No significant fluid collection. No free air. BONES/JOINTS: Multilevel spondylosis. Calcific tendinosis of the right lesser trochanter iliopsoas tendinous insertion. No acute fracture. No dislocation. SOFT TISSUES: Unremarkable VASCULATURE: See above. LYMPH NODES: Prominent appearing aortocaval lymph nodes which appear to retain their fatty coleman, fa voring reactive etiology. IMPRESSION: 1. Decreased cortical enhancement and adjacent fat stranding involving the superior po le of the right kidney, suspicious for pyelonephritis. 2. Bladder wall thickening which may be due to the decompressed state of the bladder or due to cyst itis. Correlation with urinalysis and urine culture recommended. 3. Fluid demonstrated throughout the colonic lumen, suggesting diarrheal illness. No focal bowel wa ll or mucosal thickening or adjacent fat stranding to suggest inflammatory enteritis or colitis. 4. Prominent appearing aortocaval lymph nodes which appear to retain their fatty coleman, favoring corrina ctive etiology. 5. No acute cardiopulmonary abnormality. 6. Prostatomegaly. Correlation with PSA levels recommended. Electronically signed by: Toby Quintanilla MD 01/30/2024 02:40 AM CDT RP Due to temporary technical issues with the PACS/Fluency reporting system, reports are being signed by the in house radiologists without review as a courtesy to insure prompt reporting. The interpreting radiologist is fully responsible for the content of the report.
--- NOTE | 2024-01-30 13:31 | RAD REPORT ---
EXAM DESCRIPTION: RAD - Chest Single View - 01/29/2024 11:51 pm CLINICAL HISTORY: 73 years Male CHEST PAIN TECHNIQUE: One view of the chest. COMPARISON: No prior exams provided for comparison. FINDINGS: Prominence of the cardiomediastinal silhouette and central pulmonary vasculature with mild pulmonary edema suspected. No definite pleural effusion or pneumothorax. No acute osseous lesion. IMPRESSION: Mild CHF. Electronically signed by: Brea Navarro MD 01/30/2024 12:41 AM CDT Due to temporary technical issues with the PACS/Fluency reporting system, reports are being signed by the in house radiologists without review as a courtesy to insure prompt reporting. The interpreting radiologist is fully responsible for the content of the report.
--- NOTE | 2024-01-30 15:22 | P.PN ---
Date of Service: 01/30/24 patient seen on rounds this morning. blood pressure on low-end, reports been to ER - [facility] twice in last week for hand infection which has improved with antibiotics. add vanc for empiric coverage cultures pending febrile to 103 last night NSTEMI and afib telemetry ordered denies chest pain/pressure NSTEMI possibly due to demand ischemia secondary to afib / sepsis / hypovolemia trend trop continue lovenox - received ~4am this morning Cardiology consulted this morning patient reports feeling a little better this morning
[2024-01-30] MEDS: VANCOMYCIN 2.5 GM in NA CHLORIDE 0.9% 500 ML IVPB ONE (15:31)
--- NOTE | 2024-01-30 16:24 | P.CNS ---
Chief Complaint: Acute pyelonephritis History of Present Illness: Patient with PMH of HTN, HIV, presented with generalized weakness that has been going on for 1 week, denies any cardiac symptoms, no SOB, no palpitations, no dizzy spells, no syncope. Allergies No Known Allergies Allergy (Unverified 01/30/24 03:41) Home medications list reviewed: Yes Home Medications: Amlodipine [Norvasc] 5 mg PO DAILY 01/30/24 Cephalexin 01/30/24 Ibuprofen 01/30/24 Insulin Detemir [Levemir] 01/30/24 Metformin HCl [Metformin ER Gastric] 01/30/24 Rosuvastatin Calcium 01/30/24 - Past Medical/Surgical History -: Hypertension -: insulin-dependent diabetes -: Hyperlipidemia -: Appendectomy -: Hernia repair Psychosocial/ Personal History: Lives with spouse, independent prior use of tobacco or EtOH - Social History Smoking Status: Unknown if ever smoked Alcohol use: No CD- Drugs: No Caffeine use: No Place of Residence: Home Review of Systems 10-point ROS is otherwise unremarkable Physical Examination Temp Pulse Resp BP Pulse Ox 98.7 F 103 H 16 118/64 93 01/30/24 16:00 01/30/24 16:00 01/30/24 16:00 01/30/24 16:00 01/30/24 16:00 General: Alert, In no apparent distress HEENT: Atraumatic, PERRLA, Mucous membr. moist/pink, EOMI, Sclerae nonicteric Neck: Supple, 2+ carotid pulse no bruit, No LAD, Without JVD or thyroid abnormality Respiratory: Clear to auscultation bilaterally, Normal air movement Cardiovascular: Regular rate/rhythm, Normal S1 S2 Gastrointestinal: Normal bowel sounds, No tenderness Musculoskeletal: No tenderness Integumentary: No rashes Neurological: Normal gait, Normal speech, Normal tone, Normal affect Lymphatics: No axilla or inguinal lymphadenopathy Laboratory Data (last 24 hrs) 01/29/24 01/29/24 01/29/24 23:17 23:17 23:17 WBC 19.90 H Hgb 12.7 L Hct 38.9 L Plt Count 241 PT 16.2 H INR 1.46 APTT 31.2 Sodium 133 L Potassium 3.3 L BUN 19 H Creatinine 1.52 H Glucose 158 H Total Bilirubin 0.9 AST 99 H ALT 118 H Alkaline Phosphatase 108 - Problems (1) Atrial fibrillation Current Visit: Yes Status: Acute Plan: patient currently in sinus rhythm continue lopressor follow up on echo (2) NSTEMI (non-ST elevated myocardial infarction) Current Visit: Yes Status: Acute Plan: would recommend heparin drip for now, troponin can be elevated secondary to sepsis but still can not exclude type 2 [place]. will follow up on echo (3) Sepsis Current Visit: Yes Status: Acute Plan: continue IV abx.
[2024-01-30] MEDS: ROSUVASTATIN 10 MG TAB PO SCH (20:27)
[2024-01-30] MEDS: ENOXAPARIN 100 MG/ML SYR SQ SCH (20:28)
[2024-01-30] MEDS: ACETAMINOPHEN 500 MG TAB PO PRN (21:30)
[2024-01-31 06:22] LABS: Absolute Basophils 0.1 K/uL (0-0.5); Absolute Eosinophils 0.2 K/uL (0-0.5); Absolute Monocytes 1.5 K/uL (0.1-1.3); Absolute Neutrophil 13.3 K/uL (1.8-8.0); Basophils % 0.4 % (0-1.3); Eosinophils % 1.2 % (0-4.4); Hematocrit 30.6 % (39.6-49.0); Hemoglobin 10.3 g/dL (13.6-17.9); Lymphocytes % 6.2 % (15.3-44.8); MCH 28.8 pg (27.0-35.0); MCHC 33.7 g/dL (32.0-36.0); MCV 85.5 fL (80-100); MPV 8.5 fL (7.6-11.3); Monocytes % 9.2 % (3.3-12.3); Platelets 228 thou/uL (152-406); RBC Red Blood Cell Count 3.58 M/uL (4.33-5.43); Red Cell Distribution Width 15.3 % (12.1-15.2)
[2024-01-31 06:47] LABS: Albumin 2.3 g/dL (3.4-5.0); Albumin/Globulin Ratio 0.5 (1.1-1.8); Anion Gap 13.2 mEq/L (5.0-15.0); Bilirubin Total 0.6 mg/dL (0.2-1.0); Globulin 4.6 g/dL (2.3-3.5); Magnesium 2.5 mg/dL (1.6-2.4); Potassium 3.2 mEq/L (3.5-5.1); Protein, Total 6.9 g/dL (6.4-8.2)
--- NOTE | 2024-01-31 06:47 | ECHO ---
HEIGHT: 5 ft 8 in WEIGHT: 214 lb 11.2 oz DATE OF STUDY: 01/30/[address]: Leeanne Ash ASSOCIATE MERCHANTVi 2-DIMENSIONAL: YES M.MODE: YES DOPPLER: YES COLOR FLOW: YES TDS: PORTABLE: YES DEFINITY: BUBBLE STUDY: DIAGNOSIS: NON ST ELEVATION MYOCARDIAL INFARCTION CARDIAC HISTORY: CATHERIZATION: NO SURGERY: NO PROSTHETIC VALVE: NO PACEMAKER: NO MEASUREMENTS (cm) DIASTOLIC (NORMALS) SYSTOLIC (NORMALS) IVSd 1.7 (0.6-1.2) LA Diam 3.6 (1.9-4.0) LVEF 55-60% LVIDd 3.2 (3.5-5.7) LVIDs 2.2 (2.0-3.5) %FS 30% LVPWd 1.6 (0.6-1.2) Ao Diam 2.9 (2.0-3.7) 2 DIMENSIONAL ASSESSMENT: RIGHT ATRIUM: NORMAL LEFT ATRIUM: NORMAL RIGHT VENTRICLE: NORMAL LEFT VENTRICLE: NORMAL TRICUSPID VALVE: MILD TRICUSPID REGURGITATION MITRAL VALVE: MILD MITRAL REGURGITATION PULMONIC VALVE: NORMAL AORTIC VALVE: CALCIFIED AORTIC VALVE WITH MILD MITRAL REGURGITATION PERICARDIAL EFFUSION: NONE AORTIC ROOT: NORMAL LEFT VENTRICULAR WALL MOTION: NORMAL DOPPLER/COLOR FLOW: SEE BELOW COMMENTS: 1. NORMAL LEFT VENTRICULAR EJECTION FRACTION 55-60% WITH NORMAL WALL MOTION 2. NORMAL DIASTOLIC FUNCTION 3. MILD TRICUSPID REGURGITATION, MITRAL REGURGITATION, AORTIC INSUFFICIENCY TECHNOLOGIST: AILYN MCDERMOTT
[2024-01-31] MEDS: ONDANSETRON 4 MG/2 ML VIAL IV PRN (07:58)
--- NOTE | 2024-01-31 08:07 | P.PN ---
Date of Service: 01/31/24 Subjective: family reports 5 episodes of diarrhea overnight feels more short of breath today 100.9 temp overnight ROS: 10 point ROS as noted above, otherwise negative Physical Exam: GEN: Alert, oriented, NAD HEENT: Normal conjunctiva, sclera anicteric, CV: Regular rate and rhythm, trace b/l pedal Pulm: mild labored respirations while talking, on room air. diminished at bases bilaterally ABD: soft, nontender, nondistended Neuro: Normal speech, normal affect Problem List: Sepsis secondary to acute pyelonephritis / staph bacteremia NSTEMI A-fib with RVR, new diagnosis Diarrhea IDDM2 Hyperlipidemia Hypertension hx HIV Sepsis secondary to acute pyelonephritis / staph bacteremia on admission, presented with fever, weakness, urinary incontinence for a few days. reports been to ER - [facility] twice in last week for hand infection which has improved with antibiotics CT abdomen: decreased cortical enhancement and adjacent fat stranding involving the superior pole of the right kidney, suspicious for pyelonephritis. +Bladder wall thickening urine cx (01/28): pending blood cx (01/28): staph coag+ in 4/4 bottles continue empiric cefepime and vanc (01/29-) leukocytosis improving, 100.9 temp overnight ID consulted NSTEMI A-fib with RVR, new diagnosis denies chest pain / palpitations / dizziness troponins elevated x3; peaked at 2.7k Echo (01/29): 55-60% EF, normal diastolic function, mild TR/MR/AI NSTEMI possibly secondary to demand ischemia in setting of afib / sepsis / hypovolemia. Cardiology consulted continue metoprolol 25 mg BID monitor on tele in normal sinus rhythm; HR 90-100s Diarrhea Family reports worsening diarrhea, ~5 watery BMs overnight. 2 during day yesterday check for c.diff, has been on abx for ~1 week and in ER twice isolation cart for now IDDM2 accu-cheks, SSI Hyperlipidemia resume home crestor Hypertension continue home meds as appropriate VTE: Lovenox Code: Full Dispo: Home, ~3-4 days pending ID recs / cardiac recs / afebrile > 24 hours Time Spent Managing Pts Care (In Minutes): 39
--- NOTE | 2024-01-31 13:02 | P.PN ---
Subjective Date of Service: 01/31/24 Chief Complaint: Acute pyelonephritis Subjective: No new changes, No C/O voiced, Tolerating diet, Ambulating, Improving Review of Systems 10-point ROS is otherwise unremarkable Physical Examination - Vital Signs Temperature: 98.2 F Blood Pressure: 109/46 Pulse: 98 Respirations: 18 Pulse Ox (%): 95 - Physical Exam General: Alert, In no apparent distress HEENT: Atraumatic, PERRLA, EOMI Neck: Supple, JVD not distended Respiratory: Clear to auscultation bilaterally, Normal air movement Cardiovascular: Regular rate/rhythm, Normal S1 S2 Gastrointestinal: Normal bowel sounds, No tenderness Musculoskeletal: No tenderness Integumentary: No rashes Neurological: Normal speech, Normal tone, Normal affect Lymphatics: No axilla or inguinal lymphadenopathy - Studies Microbiology Data (last 24 hrs): 01/29/24 23:17 Blood - Blood Blood Culture Gram Stain - Final 01/29/24 23:17 Blood - Blood Gram Stain - Final 01/29/24 23:25 Blood - Blood Blood Culture Gram Stain - Final 01/29/24 23:25 Blood - Blood Gram Stain - Final Medications List Reviewed: Yes Assessment And Plan - Current Problems (Diagnosis) (1) Atrial fibrillation Current Visit: Yes Status: Acute Plan: patient currently in sinus rhythm continue lopressor on Lovenox start Eliquis 5 mg po BID on discharge (2) NSTEMI (non-ST elevated myocardial infarction) Current Visit: Yes Status: Acute Plan: Most likely type 2 [place] from sepsis, AF and Hypovolemia ASA 81 mg daily Lipitor 40 mg daily outpatient follow up for stress test echo done and shows normal systolic and diastolic function. (3) Sepsis Current Visit: Yes Status: Acute Plan: continue IV abx.
[2024-01-31 14:55] LABS: C.diff Antigen/Toxin Ag neg : Tox neg (NEG : NEG); CDIFF INTERNAL NEG CONTROL White Background (WHITE BKGD); STOOL CONSISTENCY Liquid/Semi-Solid
[2024-01-31] MEDS: VANCOMYCIN 1.75 GM in NA CHLORIDE 0.9% 500 ML IVPB SCH (16:40)
[2024-01-31] MEDS: ENSURE HIGH PROTEIN 237 ML CAN PO SCH (16:41)
[2024-01-31] MEDS: NS KCL 20MEQ 20 MEQ/1,000 ML BAG IV SCH (16:43)
[2024-02-01 07:39] LABS: Absolute Basophils 0.1 K/uL (0-0.5); Absolute Eosinophils 0.1 K/uL (0-0.5); Absolute Lymphocytes (CBC) 0.9 K/uL (0.7-4.9); Absolute Monocytes 1.4 K/uL (0.1-1.3); Basophils % 0.6 % (0-1.3); Hematocrit 28.8 % (39.6-49.0); Hemoglobin 9.8 g/dL (13.6-17.9); Lymphocytes % 6.4 % (15.3-44.8); MCH 28.8 pg (27.0-35.0); MCHC 33.9 g/dL (32.0-36.0); MCV 84.9 fL (80-100); MPV 8.8 fL (7.6-11.3); Monocytes % 10.2 % (3.3-12.3); Neutrophils % 81.8 % (41.7-73.7); Nucleated Red Blood Cells % 0.1 % (0-0); Platelets 281 thou/uL (152-406); Red Cell Distribution Width 14.9 % (12.1-15.2)
--- NOTE | 2024-02-01 07:41 | RAD REPORT ---
EXAM DESCRIPTION: RAD - Chest Single View - 02/01/2024 6:36 am CLINICAL HISTORY: hypoxia, s/p IVF, eval effusion/pulm edema Chest pain. COMPARISON: Chest Single View dated 01/29/2024; Chest Pa And Lat (2 Views) dated 02/21/2023 FINDINGS: Portable technique limits examination quality. Moderate bilateral pulmonary opacities are present likely representing pulmonary edema. The heart is mildly prominent in size. No displaced fractures. IMPRESSION: Moderate to significant pulmonary edema suspected.
[2024-02-01 07:53] LABS: Albumin/Globulin Ratio 0.5 (1.1-1.8); Anion Gap 10.1 mEq/L (5.0-15.0); Bilirubin Total 0.6 mg/dL (0.2-1.0); Globulin 4.4 g/dL (2.3-3.5); Magnesium 2.2 mg/dL (1.6-2.4); Potassium 3.1 mEq/L (3.5-5.1); Protein, Total 6.4 g/dL (6.4-8.2)
[2024-02-01] MEDS: AMIODARONE HCL 150 MG in D5W 100 ML IV STA (08:02)
--- NOTE | 2024-02-01 08:02 | P.PN ---
Date of Service: 02/01/24 Subjective: converted into a-fib overnight; HR in 110-120s 1 small loose BM overnight; More formed. No further episodes breathing feels ~same as yesterday. Pt self removing oxygen supplementation strength slowly improving afebrile ROS: 10 point ROS as noted above, otherwise negative Physical Exam: GEN: Alert, oriented, NAD HEENT: Normal conjunctiva, sclera anicteric CV: Regular rate and rhythm, trace b/l pedal Pulm: mild labored respirations while talking, diminished at bases bilaterally with crackles ABD: soft, nontender, nondistended Neuro: Normal speech, normal affect Problem List: Sepsis secondary to acute pyelonephritis / staph bacteremia NSTEMI A-fib with RVR, new diagnosis acute pulmonary edema Diarrhea, improving IDDM2 Hyperlipidemia Hypertension hx HIV Sepsis secondary to acute pyelonephritis / staph bacteremia on admission, presented with fever, weakness, urinary incontinence for a few days. reports been to ER - [facility] twice in last week for hand infection which has improved with antibiotics CT abdomen: decreased cortical enhancement and adjacent fat stranding involving the superior pole of the right kidney, suspicious for pyelonephritis. 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 Cardiology consulted continue metoprolol 25 mg BID A-fib with RVR, new diagnosis converted back into a-fib overnight Start IV amiodarone per cardio - 01/31 will need script for eliquis on dc HR 110-120s currently monitor on tele acute pulmonary edema CXR (01/31): mod-significant pulmonary edema suspect multifactorial etiology secondary afib, sepsis, IVF echo 01/29 with normal EF, normal systolic/diastolic function. start IV lasix 40 mg BID 01/31 Diarrhea, improving 1 small loose BM overnight; More formed. No further episodes c.diff negative probiotic added (01/31) diarrhea mproved IDDM2 accu-cheks, SSI Hyperlipidemia resume home crestor Hypertension continue home meds as appropriate VTE: Lovenox Code: Full Dispo: Home, ~ 3 days pending ID recs / cardiac recs / afebrile > 24 hours / heart rate & rhythm improve Time Spent Managing Pts Care (In Minutes): 39
--- NOTE | 2024-02-01 08:21 | P.PN ---
Subjective Date of Service: 02/01/24 Chief Complaint: Acute pyelonephritis Subjective: New changes (patient is back into AF) Review of Systems 10-point ROS is otherwise unremarkable Physical Examination - Vital Signs Temperature: 99.8 F Blood Pressure: 138/70 Pulse: 111 Respirations: 22 Pulse Ox (%): 85 - Physical Exam General: Alert, In no apparent distress HEENT: Atraumatic, PERRLA, EOMI Neck: Supple, JVD not distended Respiratory: Crackles/rales Cardiovascular: Edema, Irregular heart rate/rhythm Gastrointestinal: Normal bowel sounds, No tenderness Musculoskeletal: No tenderness Integumentary: No rashes Neurological: Normal speech, Normal tone, Normal affect Lymphatics: No axilla or inguinal lymphadenopathy - Studies Microbiology Data (last 24 hrs): 01/29/24 23:17 Blood - Blood Blood Culture Gram Stain - Final 01/29/24 23:17 Blood - Blood Gram Stain - Final 01/29/24 23:25 Blood - Blood Blood Culture Gram Stain - Final 01/29/24 23:25 Blood - Blood Gram Stain - Final Medications List Reviewed: Yes Assessment And Plan - Current Problems (Diagnosis) (1) Atrial fibrillation Current Visit: Yes Status: Acute Plan: patient went back into AF Amiodarone 150 mg IV x1 then continue drip continue lopressor on Lovenox start Eliquis 5 mg po BID on discharge (2) NSTEMI (non-ST elevated myocardial infarction) Current Visit: Yes Status: Acute Plan: Most likely type 2 [place] from sepsis, AF and Hypovolemia ASA 81 mg daily Lipitor 40 mg daily outpatient follow up for stress test echo done and shows normal systolic and diastolic function. (3) Sepsis Current Visit: Yes Status: Acute Plan: continue IV abx. (4) SOB (shortness of breath) Current Visit: Yes Status: Acute Plan: start patient on Lasix 40 mg IV BID monitor inout and output
[2024-02-01] MEDS: FUROSEMIDE 40 MG/4 ML VIAL IV SCH ×2 (08:41→17:49)
[2024-02-01] MEDS: AMIODARONE HCL 150 MG in D5W 100 ML IV SCH (08:41)
[2024-02-01] MEDS: LACTOBACILLUS/ACIDOPHILUS TAB PO SCH (08:41)
[2024-02-01] MEDS: AMIODARONE HCL 900 MG in Dextrose 5%-Water 482 ML IV SCH (09:00)
[2024-02-01] MEDS: VANCOMYCIN 1.5 GM in NA CHLORIDE 0.9% 500 ML IVPB SCH (09:52)
[2024-02-01] MEDS ORDERED: VANCOMYCIN 1.75 GM in NA CHLORIDE 0.9% 500 ML IVPB SCH (10:00)
[2024-02-01] MEDS: CEFAZOLIN SODIUM 2 GM in NA CHLORIDE 0.9% 100 ML IVPB SCH (14:46)
[2024-02-01] MEDS: POTASSIUM CL SA 10 MEQ TAB PO ONE (21:53)
[2024-02-02] MEDS ORDERED: MELATONIN 5 MG TABLET PO PRN (02:50)
[2024-02-02 08:10] LABS: Absolute Basophils 0.1 K/uL (0-0.5); Absolute Eosinophils 0.2 K/uL (0-0.5); Absolute Lymphocytes (CBC) 1.5 K/uL (0.7-4.9); Absolute Monocytes 1.5 K/uL (0.1-1.3); Basophils % 0.8 % (0-1.3); Eosinophils % 1.5 % (0-4.4); Hematocrit 27.4 % (39.6-49.0); Hemoglobin 9.1 g/dL (13.6-17.9); Lymphocytes % 9.9 % (15.3-44.8); MCH 28.4 pg (27.0-35.0); MCHC 33.1 g/dL (32.0-36.0); MCV 85.9 fL (80-100); MPV 9.2 fL (7.6-11.3); Monocytes % 9.7 % (3.3-12.3); Neutrophils % 78.1 % (41.7-73.7); Nucleated Red Blood Cells % 0.1 % (0-0); Platelets 346 thou/uL (152-406); Red Cell Distribution Width 15.1 % (12.1-15.2)
--- NOTE | 2024-02-02 08:26 | P.PN ---
Date of Service: 02/02/24 Subjective: reports difficulty breathing overnight, restless last night remains in a-fib; HR 100-110s low BP this morning minimal appetite per family. Hasn't been eating much. afebrile ROS: 10 point ROS as noted above, otherwise negative Physical Exam: GEN: Alert, oriented, NAD HEENT: Normal conjunctiva, sclera anicteric CV: Irregularly Irregular rate and rhythm, trace b/l pedal Pulm: mild labored respirations while talking, diminished at bases bilaterally with crackles Skin: R middle finger: dark discoloration and mild swelling, no fluid collection Neuro: Normal speech, normal affect Problem List: Sepsis secondary to staph bacteremia, suspect R finger cellulitis source possible cystitis acute pulmonary edema Hypotension / hx HTN NSTEMI A-fib with RVR, new diagnosis Diarrhea, improved IDDM2 Hyperlipidemia hx HIV Sepsis secondary to staph bacteremia, suspect R finger cellulitis source possible cystitis on admission, presented with fever, weakness, urinary incontinence for a few days. reports been to ER - [facility] twice in last week for hand infection which has improved with antibiotics suspect hand infection possible source of bacteremia R middle finger remains slightly swollen and dark discoloration, no discernible abscess CT abdomen: decreased cortical enhancement and adjacent fat stranding involving the superior pole of the right kidney, suspicious for pyelonephritis. 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 lasix as BP tolerates give albumin this morning hold antihypertensives for now given low BP. repeat CXR today NSTEMI chest pain / palpitations / dizziness troponins elevated x3; peaked at 2.7k Echo (01/29): 55-60% EF, normal diastolic function, mild TR/MR/AI NSTEMI possibly secondary to demand ischemia in setting of afib / sepsis / hypovolemia. Cardiology consulted continue metoprolol 25 mg BID A-fib with RVR, new diagnosis converted back into a-fib 01/30 continue IV amiodarone; started 01/31 will need script for eliquis on dc HR 110-110s currently monitor on tele possible cardioversion on Sunday if still in a-fib Diarrhea, improved diarrhea improved c.diff negative probiotic added (01/31) IDDM2 accu-cheks, SSI Hyperlipidemia resume home crestor VTE: Lovenox Code: Full Dispo: Home, ~3 days pending ID recs / cardiac recs / afebrile > 24 hours / heart rate & rhythm improve Time Spent Managing Pts Care (In Minutes): 39
[2024-02-02 08:33] LABS: Albumin/Globulin Ratio 0.4 (1.1-1.8); Anion Gap 9.3 mEq/L (5.0-15.0); Bilirubin Total 0.5 mg/dL (0.2-1.0); Globulin 4.6 g/dL (2.3-3.5); Potassium 3.3 mEq/L (3.5-5.1); Protein, Total 6.6 g/dL (6.4-8.2)
[2024-02-02] MEDS: ALBUMIN HUM 5% 250 ML IV SCH (09:07)
[2024-02-02] MEDS: POTASSIUM CL SA 10 MEQ TAB PO ONE (09:07)
--- NOTE | 2024-02-02 10:37 | RAD REPORT ---
EXAM DESCRIPTION: RAD - Chest Single View - 02/02/2024 10:20 am CLINICAL HISTORY: f/u pulm edema, hypoxia COMPARISON: Chest Single View dated 02/01/2024; Chest Single View dated 01/29/2024; Chest Pa And Lat ( 2 Views) dated 02/21/2023; Chest Abdomen Pelvis W Cont dated 01/30/2024 FINDINGS: Lines: None. Lungs: Widespread interstitial and airspace disease bilaterally similar to 02/01/2024. Pleural: No significant pleural effusions or pneumothorax. Cardiac: Similar size and configuration. Mediastinum: Within normal limits. Bones: No acute fractures. Other: None IMPRESSION: Widespread airspace disease likely reflecting pulmonary edema and similar to 02/01/2024.
--- NOTE | 2024-02-02 11:18 | P.PN ---
Subjective Date of Service: 02/02/24 Chief Complaint: Acute pyelonephritis Subjective: No new changes, No C/O voiced, Tolerating diet, Ambulating, Improving Review of Systems 10-point ROS is otherwise unremarkable Physical Examination - Vital Signs Temperature: 99.7 F Blood Pressure: 155/64 Pulse: 111 Respirations: 30 Pulse Ox (%): 93 - Physical Exam General: Alert, In no apparent distress HEENT: Atraumatic, PERRLA, EOMI Neck: Supple, JVD not distended Respiratory: Clear to auscultation bilaterally, Normal air movement Cardiovascular: Edema, Irregular heart rate/rhythm Gastrointestinal: Normal bowel sounds, No tenderness Musculoskeletal: No tenderness Integumentary: No rashes Neurological: Normal speech, Normal tone, Normal affect Lymphatics: No axilla or inguinal lymphadenopathy - Studies Microbiology Data (last 24 hrs): 01/29/24 23:25 Blood - Blood Aerobic Blood Culture - Final Staph Aureus 01/29/24 23:25 Blood - Blood Blood Culture Gram Stain - Final 01/29/24 23:25 Blood - Blood Anaerobic Blood Culture - Final 01/29/24 23:25 Blood - Blood Gram Stain - Final 01/29/24 23:17 Blood - Blood Aerobic Blood Culture - Final 01/29/24 23:17 Blood - Blood Blood Culture Gram Stain - Final 01/29/24 23:17 Blood - Blood Anaerobic Blood Culture - Final Staph Aureus 01/29/24 23:17 Blood - Blood Gram Stain - Final Medications List Reviewed: Yes Assessment And Plan - Current Problems (Diagnosis) (1) Atrial fibrillation Current Visit: Yes Status: Acute Plan: patient went back into AF loaded with Amiodarone 150 mg IV x1 and now on drip continue lopressor on Lovenox start Eliquis 5 mg po BID on discharge if still in AF by Sunday then plan for YAZAN DCCV. (2) NSTEMI (non-ST elevated myocardial infarction) Current Visit: Yes Status: Acute Plan: Most likely type 2 [place] from sepsis, AF and Hypovolemia ASA 81 mg daily Lipitor 40 mg daily outpatient follow up for stress test echo done and shows normal systolic and diastolic function. (3) Sepsis Current Visit: Yes Status: Acute Plan: continue IV abx. (4) SOB (shortness of breath) Current Visit: Yes Status: Acute Plan: start patient on Lasix 40 mg IV BID monitor inout and output
[2024-02-02] MEDS ORDERED: HEPARIN/D5W 25,000 UNITS/500 ML BAG IV PRN (16:53)
[2024-02-02] MEDS ORDERED: SODIUM CHLORIDE 0.9% 10ML INJ IV PRN (16:56)
[2024-02-02] MEDS: METOPROLOL TAR 25 MG TAB PO SCH (17:53)
[2024-02-02 17:59] LABS: Hematocrit 20.6 % (39.6-49.0); Hemoglobin 6.6 g/dL (13.6-17.9); MCH 27.5 pg (27.0-35.0); MCHC 32.3 g/dL (32.0-36.0); MCV 85.3 fL (80-100); MPV 8.9 fL (7.6-11.3); Platelets 341 thou/uL (152-406); RBC Red Blood Cell Count 2.41 M/uL (4.33-5.43); Red Cell Distribution Width 15.1 % (12.1-15.2)
[2024-02-02 18:16] LABS: Anion Gap 10.8 mEq/L (5.0-15.0); Potassium 3.8 mEq/L (3.5-5.1)
[2024-02-02 18:17] LABS: Magnesium 2.1 mg/dL (1.6-2.4)
[2024-02-02 18:22] LABS: Blood Gas Oxyhemoglobin 95.1 % (94-97); Blood O2 Saturation 98.2 % (92-98.5)
[2024-02-02 18:23] LABS: Arterial Blood Carboxyhemoglob 1.3 % (0-1.5); Blood Gas THB 6.9 g/dl (12-18)
--- NOTE | 2024-02-02 19:09 | P.PN ---
Date of Service: 02/02/24 Patient admitted for acute pyelonephritis complicated with A-fib with RVR, started on Eliquis/Lovenox and developed worsening tachycardia today requiring ICU transfer. Repeat hemoglobin down to 6.6 from 9.[address] chest and abdomen shows no area of bleeding. Will hold off heparin drip, continue amiodarone drip for A-fib, 2 unit PRBC today, obtain stool for occult blood if positive will need urgent GI evaluation. Since GI not available today if positive stool for occult blood we need to transfer for GI workup.
[2024-02-02] MEDS: NA CHLORIDE 0.9% 250 ML ONE (20:16)
[2024-02-02] MEDS: PANTOPRAZOLE 40 MG INJ IVP SCH (20:16)
[2024-02-02] MEDS: NA CHLORIDE 0.9% 100 ML ONE (22:54)
[2024-02-02] MEDS: FUROSEMIDE 40 MG/4 ML VIAL IV ONE (23:46)
[2024-02-03] MEDS: NA CHLORIDE 0.9% 250 ML ONE ×2 (00:40→08:36)
[2024-02-03] MEDS ORDERED: WATER FOR INJ,STERILE 10 ML IM PRN (02:33)
[2024-02-03] MEDS: ZIPRASIDONE MESYLA 20 MG/VIAL IM ONE (02:50)
[2024-02-03] MEDS: WATER FOR INJ,STERILE 10 ML ONE (02:50)
[2024-02-03 06:08] LABS: Absolute Basophils 0.1 K/uL (0-0.5); Absolute Lymphocytes (CBC) 1.6 K/uL (0.7-4.9); Absolute Neutrophil 12.2 K/uL (1.8-8.0); Albumin/Globulin Ratio 0.5 (1.1-1.8); Anion Gap 12.3 mEq/L (5.0-15.0); Basophils % 0.5 % (0-1.3); Bilirubin Total 0.3 mg/dL (0.2-1.0); Eosinophils % 0.3 % (0-4.4); Globulin 4.1 g/dL (2.3-3.5); Hematocrit 23.2 % (39.6-49.0); Hemoglobin 7.9 g/dL (13.6-17.9); Lymphocytes % 10.4 % (15.3-44.8); MCHC 34.2 g/dL (32.0-36.0); Magnesium 2.1 mg/dL (1.6-2.4); Neutrophils % 81.8 % (41.7-73.7); Nucleated Red Blood Cells % 0.2 % (0-0); Phosphorus 2.2 mg/dL (2.5-4.9); Platelets 341 thou/uL (152-406); Potassium 3.3 mEq/L (3.5-5.1); Protein, Total 6.1 g/dL (6.4-8.2); RBC Red Blood Cell Count 2.64 M/uL (4.33-5.43); Red Cell Distribution Width 15.5 % (12.1-15.2)
[2024-02-03 06:10] LABS: PT Prothrombin Time 13.6 SECONDS (9.4-12.5); PTT, Activated Partial Thromb 26.7 SECONDS (24.3-36.9); Protime INR 1.22
[2024-02-03] MEDS: KCL 20 MEQ/100 mL IVPB 20 MEQ/100 ML BAG IV SCH ×2 (06:39→15:19)
--- NOTE | 2024-02-03 07:07 | P.CNS ---
Date of Consult: 02/03/24 Reason for Consult: SAHARA Requesting Physician: Daniel Stewart Chief Complaint: Acute pyelonephritis History of Present Illness: 73M w/ PMHx of Htn, HLD, HIV, DM2, & CAD who p/w generalized weakness & confusion, admitted for sepsis presumed to be from R finger wound infection, ? acute cystitis & rapid afib. He received anticoagulation therapy but he developed melena and drop in hemoglobin. He received packed RBC transfusion, & he was placed on Protonix drip. He had hypotensive episodes. Serum creatinine increased to 1.4. Baseline serum creatinine 0.9-1.0 as of 02/02/2024. He received IV contrast on 01/29/[address] scan of the abdomen and pelvis. Allergies No Known Allergies Allergy (Unverified 01/30/24 03:41) Home Medications: Amlodipine [Norvasc] 5 mg PO DAILY 01/30/24 Cephalexin 500 mg PO Q6H 01/30/24 Ibuprofen 800 mg PO PRN PRN 01/30/24 Insulin Detemir [Levemir] 10 units SQ DAILY 01/30/24 Metformin HCl [Metformin ER Gastric] 1,000 mg PO BID 01/30/24 Rosuvastatin Calcium 5 mg PO DAILY 01/30/24 - Past Medical/Surgical History -: Hypertension -: insulin-dependent diabetes -: Hyperlipidemia -: Appendectomy -: Hernia repair Psychosocial/ Personal History: Lives with spouse, independent prior use of tobacco or EtOH - Social History Smoking Status: Unknown if ever smoked Alcohol use: No CD- Drugs: No Caffeine use: No Place of Residence: Home Review of Systems General: Weakness Eyes: Unremarkable ENT: Unremarkable Respiratory: Unremarkable Cardiovascular: Unremarkable Gastrointestinal: Melena Genitourinary: Unremarkable Musculoskeletal: Unremarkable Integumentary: Unremarkable Neurological: Weakness Lymphatics: Unremarkable Physical Examination Temp Pulse Resp BP Pulse Ox 97.7 F 114 H 35 H 120/49 L 98 02/03/24 04:00 02/03/24 06:00 02/03/24 06:00 02/03/24 06:00 02/03/24 06:00 General: Other (no acute distress) HEENT: Atraumatic, Normocephalic Neck: Supple, JVD not distended Respiratory: Other (symmetric chest expansion) Cardiovascular: No rubs, No murmurs Gastrointestinal: No rebound Musculoskeletal: No clubbing Integumentary: No warmth Neurological: Normal speech, Normal tone Lymphatics: No axilla or inguinal lymphadenopathy Urinary: Other (no bladder distention) External genitalia: Deferred Rectal: Deferred Conclusions/Impression: # SAHARA 2/2 ATN from hypotension, rapid A. fib, and contrast-induced nephropathy SCr increased to 1.4 Baseline serum creatinine 0.9-1.0 as of 02/02/2024 Pt received IV contrast on 01/29/[address] scan of the abdomen and pelvis Keep MAP > 65 HR control IVF prn Monitor renal panel # Hypokalemia KCl repletion prn # Melena, acute blood loss anemia Status post packed RBC transfusion Awaiting transfer to [facility] for further GI evaluation and endoscopy # Sepsis, staph bacteremia Suspect from R finger cellulitis/wound infection ? acute cystitis Empiric abx Per other services # A. fib with RVR, new onset Hypotension resolved, heart rate better controlled Per other services # NSTEMI Per Cardiology # HLD Statin # HIV Per other services # DM2 Management per primary team
--- NOTE | 2024-02-03 07:57 | P.PN ---
Date of Service: 02/03/24 Subjective: transferred to ICU last night after increased tachycardia/tachypnea and melenic stool 3 more dark large BMs overnight initiated transfer overnight to [facility] given need for urgent GI evaluation with possible intervention remains in a-fib HR 100-110s today, improved received 2uPRBC overnight ~2.5L UOP overnight received geodon overnight ROS: 10 point ROS as noted above, otherwise negative Physical Exam: GEN: oriented, tachypneic, fatigued appearing HEENT: Normal conjunctiva, sclera anicteric CV: Irregularly Irregular rate and rhythm, trace b/l pedal Pulm: tachypneic, mild labored respirations while talking, diminished at bases bilaterally Skin: R middle finger: mild swelling with mild discoloration/dark, no appreciable abscess Neuro: Normal speech, normal affect Problem List: Sepsis secondary to staph bacteremia, suspect R finger cellulitis source possible cystitis acute blood loss anemia, suspect secondary to upper gi bleed acute pulmonary edema Hypotension / hx HTN NSTEMI A-fib with RVR, new diagnosis SAHARA Hyperkalemia Diarrhea, improved IDDM2 Hyperlipidemia hx HIV Sepsis secondary to staph bacteremia, suspect R finger cellulitis source possible cystitis on admission, presented with fever, weakness, urinary incontinence for a few days. CT noted possible cystitis/pyelonephritis initially admitted for sepsis with etiology concerning for uti/pyelo however on further discussion - family and patient reported dealing with R middle finger swelling and pain after fishing. He thinks he hit it on a rock while fishing. reports been to ER - [facility] twice in last week for hand infection which has improved with antibiotics suspect hand infection possible source of bacteremia R middle finger remains slightly swollen and dark discoloration but improved, no discernible abscess CT abdomen on admission: decreased cortical enhancement and adjacent fat stranding involving the superior pole of the right kidney, suspicious for pyelonephritis. 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 (MSSA per report - not scanned in) repeat blood cx (01/31): +GPC in 1/2 bottles repeat blood cx (01/02): pending cefepime / vanc (01/29-01/31), switched to IV cefazolin given cultures (01/31-) leukocytosis slightly better (02/02), afebrile probiotic added (01/31) ID consulted midline ordered given need for IV antibiotics, needing multiple lines (02/02) acute blood loss anemia, unknown etiology unknown origin Family reports dark black BM 02/01 pm HR more 120-130s yesterday afternoon, up to 150s with fever and movement more tachypneic on exam, family report he has been more tachypneic / labored respirations yesterday denies h/o GI bleed, no h/o acid reflux / ulcer, etc has been anticoagulated due to afib, sepsis, and not eating much, would put him at risk for developing stress ulcer IV protonix BID switched to protonix drip 01/02 dc lovenox 02/01 transfered to ICU for close monitored 02/01 may need BiPAP hgb 9.1 -> 6.6 (02/01) s/p 2 uPRBC (02/01) repeat hgb up to 7.9 (02/02) 1 uPRBC ordered (02/02) Initiated transfer to [facility] 02/01 given need for urgent GI evaluation with possible intervention and no GI affirmative action officer here acute pulmonary edema Hypotension / hx HTN CXR (01/31): mod-significant pulmonary edema suspect pulm edema multifactorial secondary afib, sepsis, IVF echo 01/29 with normal EF, normal systolic/diastolic function. lasix as BP/renal function tolerates BP improving, more consistently in 120s systollic this morning CXR ordered to reeval osorio ordered 02/02 NSTEMI chest pain / palpitations / dizziness troponins elevated x3; peaked at 2.7k Echo (01/29): 55-60% EF, normal diastolic function, mild TR/MR/AI NSTEMI possibly secondary to demand ischemia in setting of afib / sepsis / hypovolemia. Cardiology consulted continue metoprolol 25 mg BID A-fib with RVR, new diagnosis converted back into a-fib 01/30 continue IV amiodarone; started 01/31 will need script for eliquis on dc HR 110-110s currently monitor on tele possible cardioversion on Sunday if still in a-fib per cardio SAHARA Hyperkalemia nephrology consulted continue to monitor renal function lasix as BP/renal function tolerates osorio ordered 02/02 ~2.5L UOP overnight Diarrhea, improved diarrhea improved c.diff negative probiotic added (01/31) IDDM2 accu-cheks q6h, SSI Hyperlipidemia resume home crestor VTE: lovenox dc'd Code: Full Initiated transfer to [facility] 02/01 given need for urgent GI evaluation with possible intervention and no GI affirmative action officer here Time Spent Managing Pts Care (In Minutes): 39
[2024-02-03] MEDS: PANTOPRAZOLE INJ 80 MG in NA CHLORIDE 0.9% 250 ML IV SCH (08:36)
[2024-02-03] MEDS: POTASSIUM PHOS IN 0.9 % NACL 15 MMOL/250 ML BAG IV ONE (08:36)
[2024-02-03] MEDS: Mupirocin NASAL 2 APPL/1 GM TUBE NAS SCH (08:37)
[2024-02-03] MEDS ORDERED: SODIUM CHLORIDE 0.9% 10ML INJ IV PRN (08:55)
[2024-02-03] MEDS: PANTOPRAZOLE 40 MG INJ IVP ONE (09:18)
--- NOTE | 2024-02-03 09:26 | RAD REPORT ---
EXAM DESCRIPTION: RAD - Chest Single View - 02/03/2024 8:54 am CLINICAL HISTORY: F/U PULMONARY EDEMA COMPARISON: Chest Single View dated 02/02/2024; Chest Single View dated 02/01/2024; Chest Single View dated 01/29/2024; Chest Pa And Lat (2 Views) dated 02/21/2023 FINDINGS: Lines: None. Lungs: Widespread airspace disease without significant interval change. Pleural: No significant pleural effusions or pneumothorax. Cardiac: Similar size and configuration . Mediastinum: Within normal limits. Bones: No acute fractures. Other: None IMPRESSION: Similar aeration of the lungs with pulmonary edema.
[2024-02-03] MEDS: SUCRALFATE 1GM/10ML UCUP PO SCH (11:01)
--- NOTE | 2024-02-03 11:14 | P.PN ---
Subjective Date of Service: 02/03/24 Chief Complaint: Acute pyelonephritis Subjective: New changes (patient had dark stool overnight and transferred to ICU) Review of Systems 10-point ROS is otherwise unremarkable Physical Examination - Vital Signs Temperature: 99.1 F Blood Pressure: 123/57 Pulse: 104 Respirations: 19 Pulse Ox (%): 99 - Physical Exam General: Alert, In no apparent distress HEENT: Atraumatic, PERRLA, EOMI Neck: Supple, JVD not distended Respiratory: Normal air movement, Crackles/rales Cardiovascular: Irregular heart rate/rhythm Gastrointestinal: Normal bowel sounds, No tenderness Musculoskeletal: No tenderness Integumentary: No rashes Neurological: Normal speech, Normal tone, Normal affect Lymphatics: No axilla or inguinal lymphadenopathy - Studies Medications List Reviewed: Yes Assessment And Plan - Current Problems (Diagnosis) (1) Atrial fibrillation Current Visit: Yes Status: Acute Plan: patient went back into AF loaded with Amiodarone 150 mg IV x1 and now on drip continue lopressor anticoagulation on hold due GI bleed no plan for DCCV due to risk of stroke. (2) NSTEMI (non-ST elevated myocardial infarction) Current Visit: Yes Status: Acute Plan: Most likely type 2 [place] from sepsis, AF and Hypovolemia ASA 81 mg daily Lipitor 40 mg daily outpatient follow up for stress test echo done and shows normal systolic and diastolic function. (3) Sepsis Current Visit: Yes Status: Acute Plan: continue IV abx. (4) SOB (shortness of breath) Current Visit: Yes Status: Acute Plan: start patient on Lasix 40 mg IV BID monitor inout and output
[2024-02-03] MEDS: INSULIN REGULAR (HUMAN) 100 UNIT/ML SQ SCH (12:00)
--- NOTE | 2024-02-03 14:08 | CON ---
Date of Consultation: 02/03/2024 Brief History Of Present Illness: Patient is a 73-year-old male with past medical h istory of hypertension, hyperlipidemia, diabetes, urinary tract infections, who [facility] with fever. He has had recent treatment for urinary tract infections and discharged. He continued to have incontinence issues and significant fever up to 103, while being examined in the ER . He also has some weakness with ambulation and difficulty walking due to fatigue. He had some shor tness of breath with exertion. No chest pain. No other complaints at that time. He was admitted to the hospital for treatment with electrolyte abnormalities and continued fever workup and treatment o f his urinary tract infection with possible sepsis secondary to acute pyelonephritis. During his adm ission, he had new-onset atrial fibrillation, at which point, he was anticoagulated. After his antic oagulation was initiated, he ultimately developed some dark black stool of significant volume from hi s rectum consistent with a gastrointestinal bleed. This occurred on several occasions and as such th at his hemoglobin began to drop and he was beginning to get transfusions of packed red blood cells an d his anticoagulation was stopped at this point. I am consulted for that reason and I have seen the patient. The patient has no complaints other than some tenderness of his right middle finger after s triking it on a rock while casting a fishing pole. He has no abdominal pain. No nausea. No vomitin g. No other gastrointestinal complaints. He has never had similar episodes before in the past and d enies ever having a colonoscopy. Past Medical History: Significant for hypertension, diabetes, hyperlipidemia. Past Surgical History: Includes appendectomy and hernia repair. Allergies: NO KNOWN DRUG ALLERGIES. Home Medications: Include Norvasc, cephalexin, ibuprofen, Levemir, metformin, rosuvastatin, and an o ccasional aspirin. Social History: He lives with his spouse. He denies current use of tobacco, but did have a previous tobacco use. He denies any alcohol usage. He denies recreational drug use. Review of Systems: Ten-point review of systems other than HPI, denies. Physical Examination: General: At the time of my examination, he is awake, alert, and oriented. Psychiatric: He is appropriate and conversive but does have a flat affect. Neck: Supple without JVD. Chest: Normal expansion and excursion, otherwise. Cardiovascular: Irregular rhythm, regular rate during my examination. Abdomen: Soft, nontender, nondistended. No rebound. No guarding. No focal peritonitis. I have se en evidence of black tarry stool. Extremities: No clubbing, cyanosis, or edema. Skin: Warm and dry. Laboratory Data: Revealed a white blood cell count of 15. Hemoglobin was 7.9, up from 6.6, post tra nsfusion with 2 units of PRBCs, and hematocrit of 23.2, platelet count is 341. His chemistry showed a sodium of 148, potassium 3.3, chloride 116, carbon dioxide is 23, BUN 81, creatinine 1.3, glucose i s 221. His calcium was 8.8, magnesium was 2.2. AST 42, ALT 47, alkaline phosphatase 58. His proBNP was 2733. His urine was extremely turbid on 01/28 with trace glucose, 1+ blood, 3+ crystals, hyalin e casts. His C diff toxin was negative and his COVID was negative. He had a CT of the chest, abdome n, and pelvis on 01/28 which was officially read as decreased cortical enhancement, adjacent fat stra nding involving the superior pole of the right kidney suspicious for pyelonephritis. Bladder wall th ickening may be due to decompressed state of the bladder or due to cystitis. lumen sugges t diarrheal illness. No focal bowel wall or mucosal thickening or adjacent fat stranding to suggest inflammatory enteritis or colitis. Prominent appearing aortocaval lymph nodes which appear to retain their fatty coleman, favoring reactive etiology. Prostatomegaly. Assessment And Plan: This is a 73-year-old male who came into the hospital with possible pyelonephri tis, ultimately developed new-onset atrial fibrillation. He was given anticoagulation and subsequent ly developed what appears to be a gastrointestinal bleed of uncertain etiology in origin. 1.Continue IV fluid hydration. 2.Continue blood product replacement as needed with serial examinations of his anticoagulation statu s. 3.Hold all anticoagulation, at this point. 4.Management of atrial fibrillation per Cardiology recommendations. 5.Continue medical management of his pyelonephritis per medical team. 6.I have explained that the patient should get a colonoscopy either during this admission or possibl y after discharge, but I have expressed the need and necessity to have his gastrointestinal tract franco luated after episode of gastrointestinal bleed with no history of colonoscopy as there could be some significant etiology to this, he should have it evaluated. 7.I will follow along with you with serial exams. I have explained the risks, benefits, and alternatives of the above stated plan. The patient agrees to proceed as indicated. Thank you for this interesting consult. TONY Voice ID: [id number] Report ID: [id number]
[2024-02-03 14:33] LABS: Hematocrit 24.5 % (39.6-49.0)
[2024-02-03 14:43] LABS: Phosphorus 3.5 mg/dL (2.5-4.9); Potassium 3.6 mEq/L (3.5-5.1)
[2024-02-03 18:08] LABS: Hematocrit 23.1 % (39.6-49.0); Hemoglobin 7.7 g/dL (13.6-17.9); MCH 29.3 pg (27.0-35.0); MCHC 33.3 g/dL (32.0-36.0); MPV 8.4 fL (7.6-11.3); Platelets 336 thou/uL (152-406); RBC Red Blood Cell Count 2.62 M/uL (4.33-5.43); Red Cell Distribution Width 15.6 % (12.1-15.2)
[2024-02-03 18:24] LABS: Anion Gap 8.8 mEq/L (5.0-15.0); Potassium 3.8 mEq/L (3.5-5.1)
--- NOTE | 2024-02-03 19:30 | P.DS ---
Admission Date: 01/30/24 Discharge Date: 02/03/24 Disposition: TRANSFER TO [facility] Discharge Condition: SERIOUS Reason for Admission: Acute pyelonephritis Hospital Course: Hospital course Patient with history of hypertension admitted for weakness and mild confusion and diagnosed with acute pyelonephritis. As well as A-fib with RVR. Started initially on Lovenox and then later transitioned to Eliquis. Patient developed melena stools and drop in hemoglobin. He received 3 units of PRBC with marginal improvement hemoglobin from 6.6-7.8. Admission hemoglobin was 10.8. Eliquis were held. He was started on PPI drip. He is still in A-fib with RVR although rate controlled in the upper 90s to low 100s. He still on amiodarone drip. He did have mild elevation in troponin but cleared by cardiology. Due to lack of GI for scope, patient is being transferred to [facility]. Of note during hospitalization he was started on antibiotics he remained afebrile, blood culture grew staph with MSSA parent reports, he still receiving antibiotics. He was also noted with recent treatment for hand infection but improving right middle finger swelling. He did have some intermittent nocturnal agitation that was treated with Geodon x 1 episode. He is alert and conversant now. His vitals are stable now. Doc to Doc was done at both [facility] as well as at [facility]. He has been accepted to [facility] and will be transferred now others sepsis secondary to staph bacteremia, suspect R finger cellulitis source possible cystitis acute blood loss anemia, suspect secondary to upper gi bleed acute pulmonary edema Hypotension / hx HTN NSTEMI A-fib with RVR, new diagnosis SAHARA Hyperkalemia Diarrhea, improved IDDM2 Hyperlipidemia hx HIV Sepsis secondary to staph bacteremia, suspect R finger cellulitis source possible cystitis on admission, presented with fever, weakness, urinary incontinence for a few days. CT noted possible cystitis/pyelonephritis initially admitted for sepsis with etiology concerning for uti/pyelo however on further discussion - family and patient reported dealing with R middle finger swelling and pain after fishing. He thinks he hit it on a rock while fishing. reports been to ER - [facility] twice in last week for hand infection which has improved with antibiotics suspect hand infection possible source of bacteremia R middle finger remains slightly swollen and dark discoloration but improved, no discernible abscess CT abdomen on admission: decreased cortical enhancement and adjacent fat stranding involving the superior pole of the right kidney, suspicious for pyelonephritis. 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 (MSSA per report - not scanned in) repeat blood cx (01/31): +GPC in 1/2 bottles repeat blood cx (01/02): pending cefepime / vanc (01/29-01/31), switched to IV cefazolin given cultures (01/31-) leukocytosis slightly better (02/02), afebrile probiotic added (01/31) ID consulted midline ordered given need for IV antibiotics, needing multiple lines (02/02) acute blood loss anemia, unknown etiology unknown origin Family reports dark black BM 02/01 pm HR more 120-130s yesterday afternoon, up to 150s with fever and movement more tachypneic on exam, family report he has been more tachypneic / labored respirations yesterday denies h/o GI bleed, no h/o acid reflux / ulcer, etc has been anticoagulated due to afib, sepsis, and not eating much, would put him at risk for developing stress ulcer IV protonix BID switched to protonix drip 01/02 dc lovenox 02/01 transfered to ICU for close monitored 02/01 may need BiPAP hgb 9.1 -> 6.6 (02/01) s/p 2 uPRBC (02/01) repeat hgb up to 7.9 (02/02) 1 uPRBC ordered (02/02) Initiated transfer to [facility] 02/01 given need for urgent GI evaluation with possible intervention and no GI ent consultant here acute pulmonary edema Hypotension / hx HTN CXR (01/31): mod-significant pulmonary edema suspect pulm edema multifactorial secondary afib, sepsis, IVF echo 01/29 with normal EF, normal systolic/diastolic function. lasix as BP/renal function tolerates BP improving, more consistently in 120s systollic this morning CXR ordered to reeval jo ordered 02/02 NSTEMI chest pain / palpitations / dizziness troponins elevated x3; peaked at 2.7k Echo (01/29): 55-60% EF, normal diastolic function, mild TR/MR/AI NSTEMI possibly secondary to demand ischemia in setting of afib / sepsis / hypovolemia. Cardiology consulted continue metoprolol 25 mg BID A-fib with RVR, new diagnosis converted back into a-fib 01/30 continue IV amiodarone; started 01/31 will need script for eliquis on dc HR 110-110s currently monitor on tele possible cardioversion on Sunday if still in a-fib per cardio SAHARA Hyperkalemia nephrology consulted continue to monitor renal function lasix as BP/renal function tolerates osorio ordered 02/02 ~2.5L UOP overnight Diarrhea, improved diarrhea improved c.diff negative probiotic added (01/31) IDDM2 accu-cheks q6h, SSI Hyperlipidemia resume home crestor Vital Signs/Physical Exam: Temp Pulse Resp BP Pulse Ox 98.1 F 86 32 H 113/41 L 98 02/03/24 16:00 02/03/24 18:00 02/03/24 18:00 02/03/24 18:00 02/03/24 18:00 General: Alert, In no apparent distress, Oriented x3 HEENT: Atraumatic, Normocephalic, PERRLA Neck: Supple, 2+ carotid pulse no bruit, JVD not distended Respiratory: Clear to auscultation bilaterally, Normal air movement Cardiovascular: No edema, Normal S1 S2 Gastrointestinal: Normal bowel sounds, Soft and benign, Non-distended Musculoskeletal: No clubbing, No swelling Neurological: Normal gait, Normal strength at 5/5 x4 extr, Sensation intact Laboratory Data at Discharge: WBC 17.10 thou/uL (4.3-10.9) H 02/03/24 18:01 Hgb 7.7 g/dL (13.6-17.9) L 02/03/24 18:01 Hct 23.1 % (39.6-49.0) L 02/03/24 18:01 Plt Count 336 thou/uL (152-406) 02/03/24 18:01 PT 13.6 SECONDS (9.4-12.5) H 02/03/24 05:25 INR 1.22 02/03/24 05:25 APTT 26.7 SECONDS (24.3-36.9) 02/03/24 05:25 Sodium 153 mEq/L (136-145) H* D 02/03/24 18:01 Potassium 3.8 mEq/L (3.5-5.1) 02/03/24 18:01 BUN 48 mg/dL (7-18) H 02/03/24 18:01 Creatinine 1.17 mg/dL (0.70-1.30) 02/03/24 18:01 Glucose 177 mg/dL (74-106) H 02/03/24 18:01 Phosphorus 3.5 mg/dL (2.5-4.9) 02/03/24 14:21 Magnesium 2.1 mg/dL (1.6-2.4) 02/03/24 05:25 Total Bilirubin 0.3 mg/dL (0.2-1.0) 02/03/24 05:25 AST 42 U/L (15-37) H 02/03/24 05:25 ALT 47 U/L (16-61) 02/03/24 05:25 Alkaline Phosphatase 58 U/L (45-117) D 02/03/24 05:25 Triglycerides 191 mg/dL (<150) H 01/30/24 07:30 Cholesterol 84 mg/dL (<200) 01/30/24 07:30 HDL Cholesterol 11 mg/dL (40-60) L 01/30/24 07:30 Cholesterol/HDL Ratio 7.64 01/30/24 07:30 Home Medications: Amlodipine [Norvasc] 5 mg PO DAILY 01/30/24 Cephalexin 500 mg PO Q6H 01/30/24 Ibuprofen 800 mg PO PRN PRN 01/30/24 Insulin Detemir [Levemir] 10 units SQ DAILY 01/30/24 Metformin HCl [Metformin ER Gastric] 1,000 mg PO BID 01/30/24 Rosuvastatin Calcium 5 mg PO DAILY 01/30/24 Diet: NPO Followup: Freedom Watkins MD [ACTIVE - CAN ADMIT] - RAIMUNDO EUBANKS [Primary Care Provider] - Time spent managing pt's care (in minutes): 35
[2024-02-03 20:19] VITALS: O2SAT 96
[2024-02-03] MEDS: D5W 1,000 ML IV SCH (20:26)
[2024-02-03] MEDS ORDERED: SILVER SULFADIAZINE 1% 50 GM TOP SCH (21:00)
[2024-02-03 21:41] VITALS: BP 121/50; TEMP 97.5
[2024-02-03] MEDS ORDERED: FUROSEMIDE 40 MG/4 ML VIAL IV ONE (23:00)
--- NOTE | 2024-02-05 18:07 | EKG ---
Test Date: 2024-01-29 Test Time: 23:30:45 [employer] Processing Supervisor: JOSE ENRIQUE MEASUREMENT RESULTS: Intervals: Rate: 129 MS: QRSD: 74 QT: 230 QTc: 336 [place]: P: MS: QRS: 1 T: 30 INTERPRETIVE STATEMENTS: Atrial fibrillation Nonspecific ST and T wave abnormality, probably digitalis effect Abnormal ECG Compared to ECG 01/29/2024 23:29:22 ST (T wave) deviation now present T-wave abnormality no longer present Electronically Signed On 02-05-24 17:54:18 CDT by Kimo Yepez
--- NOTE | 2024-02-05 18:07 | EKG ---
Test Date: 2024-01-30 Test Time: 03:08:31 Marine Oiler: JOSE ENRIQUE MEASUREMENT RESULTS: Intervals: Rate: 96 NV: 140 QRSD: 92 QT: 352 QTc: 444 [place]: P: 52 NV: 140 QRS: 9 T: -11 INTERPRETIVE STATEMENTS: Sinus rhythm Nonspecific T wave abnormality Abnormal ECG Compared to ECG 01/29/2024 23:30:45 T-wave abnormality now present Atrial fibrillation no longer present ST (T wave) deviation no longer present Electronically Signed On 02-05-24 17:54:15 CDT by Kimo Yepez
--- NOTE | 2024-02-05 18:08 | EKG ---
Test Date: 2024-01-29 Test Time: 23:29:22 [employer] Teacher: JOSE ENRIQUE MEASUREMENT RESULTS: Intervals: Rate: 125 NE: QRSD: 72 QT: 186 QTc: 268 [place]: P: NE: QRS: 1 T: 64 INTERPRETIVE STATEMENTS: Atrial fibrillation Nonspecific T wave abnormality, probably digitalis effect Abnormal ECG No previous ECG available for comparison Electronically Signed On 02-05-24 17:54:20 CDT by Kimo Yepez
== END 2024-02-03 21:20 | disposition short-term general hospital (02) | DRG 871 ==
LOC: ER 23:15 → 2ND 01-30 03:25 → 3RD-ICU 02-02 17:24
PROVIDERS: ADMIT Internal Medicine; ATTEND Hospitalist
PROC: 4A033R1 Measurement of Arterial Saturation, Peripheral, Percutaneous Approach (ICD-10-PCS; principal; 2024-01-30)
PROC: 30233N1 Transfusion of Nonautologous Red Blood Cells into Peripheral Vein, Percutaneous Approach (ICD-10-PCS; 2024-02-02)
PROC: 0T9B70Z Drainage of Bladder with Drainage Device, Via Natural or Artificial Opening (ICD-10-PCS; 2024-02-03)
PROC: 02HV33Z Insertion of Infusion Device into Superior Vena Cava, Percutaneous Approach (ICD-10-PCS; 2024-02-03)
DX: A41.01 Sepsis due to Methicillin susceptible Staphylococcus aureus (principal); I21.A1 Myocardial infarction type 2; J81.0 Acute pulmonary edema; N17.0 Acute kidney failure with tubular necrosis; N10 Acute pyelonephritis; E87.1 Hypo-osmolality and hyponatremia; D62 Acute posthemorrhagic anemia; K92.2 Gastrointestinal hemorrhage, unspecified; R65.20 Severe sepsis without septic shock; L03.011 Cellulitis of right finger; I10 Essential (primary) hypertension; I48.91 Unspecified atrial fibrillation; E87.6 Hypokalemia; E11.9 Type 2 diabetes mellitus without complications; E78.00 Pure hypercholesterolemia, unspecified; R29.701 NIHSS score 1; Z21 Asymptomatic human immunodeficiency virus [HIV] infection status; Z79.4 Long term (current) use of insulin; Z11.52 Encounter for screening for COVID-19; Z79.84 Long term (current) use of oral hypoglycemic drugs; Z90.49 Acquired absence of other specified parts of digestive tract; Z79.899 Other long term (current) drug therapy
CPT/HCPCS: 36415; 36430; 36600; 70450; 71045; 71260; 74177; 80048; 80053; 80061; 80202; 81001; 82805; 82947; 83605; 83735; 83880; 84100; 84132; 84484; 85014; 85018; 85025; 85027; 85610; 85730; 86850; 86900; 86901; 86920; 87040; 87205; 87324; 87804; 87811; 93005; 93306; 96361; 96365; 96367; 96372; 96375; 97116; 97161; 97530; 99285; J0282; J0690; J0692; J1650; J1940; J2405; J2470; J3480; J3486; J7030; J7040; J7050; J7060; P9016; P9045; P9047; Q9967